=== PATIENT | male | born 1930 | race Hispanic/Latino ===

== ENCOUNTER 2017-07-21 06:54 | Day surgery (SDC) | payer MEDICARE, BC ==
[2017-07-10 12:40] VITALS: BMI 27.1
[2017-07-21 07:40] LABS: BLOOD UREA NITROGEN 18 mg/dL (7-21); CALCIUM 9.8 mg/dL (8.4-10.5); GFR AFRICAN-AMERICAN > 60; GFR NON-AFRICAN AMERICAN > 60
[2017-07-21 07:42] LABS: INR 1.14 (0.93-1.08); PARTIAL THROMBOPLASTIN TIME 26.8 Seconds (25.1-36.5); PROTHROMBIN TIME 13.2 SECONDS (9.4-12.5)
[2017-07-21 08:13] LABS: BASO # 0.04 K/mm3 (0.0-2.0); BASO % 0.6 % (0.0-3.0); EOS # 0.1 (0.0-0.7); GRAN # 4.28 (1.4-6.5); GRAN % 64.8 % (50.0-68.0); HEMOGLOBIN 10.4 g/dL (14.0-18.0); LYMPH # 1.4 (1.2-3.4); LYMPH % 21.4 % (22.0-35.0); MEAN CELL VOLUME 99.1 fl (80.0-105.0); MEAN CORPUSCULAR HEMOGLOBIN 32.6 pg (25.0-35.0); MEAN CORPUSCULAR HGB CONC 32.9 g/dl (31.0-37.0); MEAN PLATELET VOLUME 10.3 fl (7.0-11.0); MONO # 0.7 (0.1-0.6); MONO % 11.2 % (1.0-6.0); RBC 3.19 10^6/uL (3.5-6.1); WHITE BLOOD COUNT 6.6 10^3/ul (4.5-11.0)
[2017-07-21] MEDS ORDERED: Midazolam 2 MG/2 ML VIAL ONE (09:20)
[2017-07-21] MEDS ORDERED: Lidocaine 1% Inj (20ml) ONE (09:21)
[2017-07-21] MEDS ORDERED: Oxycodone/Acetaminophen 5/325 mg Tab PO PRN (09:55)
[2017-07-21] MEDS ORDERED: Sodium Chloride 0.45% 1,000 ML IV SCH (10:00)
[2017-07-21 10:33] VITALS: RESP 18
--- NOTE | 2017-07-21 11:35 | RAD ---
HISTORY: lt lung bx COMPARISON: 06/19/2015 FINDINGS: LUNGS: No active pulmonary disease. PLEURA: No significant pleural effusion identified, no pneumothorax apparent. CARDIOVASCULAR: Normal. OSSEOUS STRUCTURES: No significant abnormalities. VISUALIZED UPPER ABDOMEN: Normal. OTHER FINDINGS: None. IMPRESSION: No active disease. No evidence of pneumothorax
[2017-07-21 11:36] VITALS: TEMP 98.7
[2017-07-21 13:16] VITALS: BP 147/51; PULSE 61; O2SAT 95
--- NOTE | 2017-07-21 17:25 | CT ---
PROCEDURE: CT guided left upper lobe lung biopsy. HISTORY: CLL. 3 cm stellate opacity in the left upper lobe. Evaluate for malignancy. PHYSICIAN(S): Rojas Meza MD. TECHNIQUE: The relative risks and indications of the procedure were explained to the patient and his family and consent obtained. The patient was placed supine on the CT scanner and preliminary images through the lung apices obtained. Conscious sedation and monitoring were provided throughout the procedure by a nurse. There is a 3 cm stellate opacity at the left apex anteriorly. A left anterior approach was selected and the area prepped and draped in the usual sterile fashion. 1% Xylocaine was used to anesthetize the skin and soft tissues. A 19 gauge guiding needle was advanced into the 3 cm left apical opacity. Its position was confirmed with CT. Using coaxial technique, multiple core biopsies were obtained. The postprocedure images show no evidence of large pneumothorax or significant hemorrhage.. IMPRESSION: 1. CT-guided left apical lung biopsy as described above.
== END 2017-07-21 13:00 | disposition home or self-care (01) ==
LOC: SDS 06:54
PROVIDERS: ATTEND Radiology Vascular & Interventional Radiology
DX: C34.12 Malignant neoplasm of upper lobe, left bronchus or lung (principal); C91.10 Chronic lymphocytic leukemia of B-cell type not having achieved remission; E11.9 Type 2 diabetes mellitus without complications; Z87.891 Personal history of nicotine dependence
CPT/HCPCS: 32405; 36415; 71045; 77012; 80048; 85025; 85610; 85730; 88305; J2250; J2405; J3010; J7030

== ENCOUNTER 2017-08-26 12:50 | Inpatient (IN) | payer MEDICARE, BC ==
[2017-08-26 13:08] VITALS: BMI 27.0
--- NOTE | 2017-08-26 13:37 | RAD ---
HISTORY: 87yoM, chest pain COMPARISON: 07/21/2017 FINDINGS: LUNGS: No active pulmonary disease. PLEURA: No significant pleural effusion identified, no pneumothorax apparent. CARDIOVASCULAR: Normal. OSSEOUS STRUCTURES: No significant abnormalities. VISUALIZED UPPER ABDOMEN: Normal. OTHER FINDINGS: None. IMPRESSION: No active disease.
--- NOTE | 2017-08-26 13:40 | ED PDOC ---
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 Ahumada [place] [facility] [place] past [place] and has been having intermittent hx of yellowing of skin which occurred at this time and now with chest pain, midsternal which has improved with full dose of aspirin /x2 sprays of nitroglycerin per EMS and otherwise without any dark stool/ bleeding/nausea/vomiting/headache/dizziness/difficulty breathing/abdomen pain/ numbness/tingling/loss of limb function/pain with urination. Time/Duration: 24 hours Symptom Onset: Gradual Symptom Course: Improving Quality: Aching Severity Level: 2 Activities at Onset: Rest Context: Sitting Past Medical History - Provider Review Nursing Documentation Reviewed: Yes - Travel History Have you recently traveled outside [place] w/in the past 3 mons?: No - Infectious Disease Hx of Infectious Diseases: None - Cardiac Hx Cardiac Disorders: Yes Hx Atrial Fibrillation: Yes Hx Congestive Heart Failure: Yes Hx Pacemaker: No - Pulmonary Hx Lung Cancer: Yes - Neurological Hx Paralysis: No - HEENT Hx HEENT Disorder: No - Endocrine/Metabolic Hx Diabetes Mellitus Type 2: Yes - Hematological/Oncological Hx Blood Transfusions: Yes Hx Blood Transfusion Reaction: Yes (reaction to cold blood transfusion) Hx Leukemia: Yes - Musculoskeletal/Rheumatological Hx Musculoskeletal Disorders: No - Gastrointestinal Hx Gastrointestinal Disorders: No Hx Bowel Surgery: No Hx Colitis: No Hx Constipation: No Hx Crohn's Disease: No Hx Diarrhea: No Hx Diverticulitis: No Hx Esophageal Varices: No Hx Fatty Liver Disease: No Hx Gall Bladder Disease: Yes (GB REMOVAL 1 YR AGO) Hx Gastritis: No Hx Gastroesophageal Reflux: No Hx Gastrointestinal Ulcer: No Hx Hemorrhoids: No Hx Ileostomy: No Hx Irritable Bowel: No Hx Liver Failure: No Hx Nausea: No Hx Pancreatitis: No Hx Vomiting: No - Genitourinary/Gynecological Other/Comment: chemo therapy, AIHA - Psychiatric Hx Emotional Abuse: No Hx Physical Abuse: No Hx Substance Use: No - Surgical History Hx Appendectomy: No Hx Cholecystectomy: No Hx Gastric Bypass Surgery: No Hx Liver Transplant: No Hx Splenectomy: No - Anesthesia Hx Anesthesia Reactions: No Hx Malignant Hyperthermia: No - Suicidal Assessment Feels Threatened In Home Enviroment: No Family/Social History - Physician Review Nursing Documentation Reviewed: Yes Family/Social History: No Known Family HX Smoking Status: Never Smoked Hx Alcohol Use: No Hx Substance Use: No Allergies/Home Meds Allergies/Adverse Reactions: Allergies No Known Allergies Allergy (Verified 08/15/11 11:03) Home Medications: Home Meds Medication Instructions Recorded Confirmed Glipizide [Glucotrol] 5 mg PO BID 06/27/15 08/26/17 Carvedilol [Coreg] 3.125 mg PO BID 07/10/17 08/26/17 Furosemide [Lasix] 40 mg PO BID 07/10/17 08/26/17 Losartan [Cozaar] 25 mg PO DAILY 07/10/17 08/26/17 Potassium Chloride [Klor-Con M20] 20 meq PO DAILY 07/10/17 08/26/17 Folic Acid 1 mg PO DAILY 08/26/17 08/26/17 metOLazone [Zaroxolyn] 5 mg PO DAILY 08/26/17 08/26/17 Review of Systems - Review of Systems Constitutional: Fatigue Eyes: Other (yellow) ENT: Normal Respiratory: Normal Cardiovascular: Chest Pain Gastrointestinal: Normal Genitourinary Male: Normal Musculoskeletal: Normal Skin: Normal Neurological: Normal Endocrine: Normal Hemo/Lymphatic: Normal Psychiatric: Normal Physical Exam Vital Signs Reviewed: Yes Vital Signs Temp Pulse Resp BP Pulse Ox 08/26/17 13:08 98.2 F 64 18 117/44 L 96 Temperature: Afebrile Blood Pressure: Hypertensive Pulse: Regular Respiratory Rate: Normal Appearance: Positive for: Ill-Appearing Pain Distress: None Mental Status: Positive for: Alert and Oriented X 3 - Systems Exam Head: Present: Atraumatic, Normocephalic Pupils: Present: PERRL Extroacular Muscles: Present: EOMI Conjunctiva: Present: Icteric Ears: Present: Normal Mouth: Present: Moist Mucous Membranes Pharnyx: Present: Normal Nose (External): Present: Atraumatic Nose (Internal): Present: Normal Inspection Neck: Present: Normal Range of Motion Respiratory/Chest: Present: Clear to Auscultation, Good Air Exchange Cardiovascular: Present: Regular Rate and Rhythm Abdomen: No: Tenderness, Distention, Normal Bowel Sounds, Peritoneal Signs, Rebound, Guarding, McBurney's Point Tender, Rovsing's Sign Present, Hernias, Feeding Tubes, Ostomy Tubes, Mass/Organomegaly, Scars, Other Back: Present: Normal Inspection Upper Extremity: Present: Normal Inspection Lower Extremity: Present: Normal Inspection Neurological: Present: GCS=15, CN II-XII Intact, Speech Normal, Motor Func Grossly Intact Skin: Present: Other (yellow) Psychiatric: Present: Alert, Oriented x 3, Normal Insight, Normal Concentration Medical Decision Making ED Course and Treatment: Report Date : 08/26/2017 13:35:44 Procedure: Chest xray Dictator : Derrick Dangelo MD IMPRESSION: No active disease. 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 Ahumada of [facility] [place] past week and has been having intermittent hx of yellowing of skin which occurred at this time and now with chest pain, midsternal which has improved with full dose of aspirin /x2 sprays of nitroglycerin per EMS and otherwise without any dark stool/ bleeding/nausea/vomiting/headache/dizziness/difficulty breathing/abdomen pain/ numbness/tingling/loss of limb function/pain with urination. You were otherwise breathing easily, pink moist lips, smiling and talking with your /daughter, good strength/sensation, alert/oriented, walking easily, clear lungs, no abdomen tenderness, yellow eyes/skin, no fever temp 98.2, stable heart rate 64, stable breathing rate 18, excellent oxygen level 96% room air, elevated blood pressure 117/44_ which we recommend repeat in 2-3 days primary care office to determine further treatment, you have blood tests no infection count 8, slow blood level hemoglobin 4.2/ stable platelets 346, chest xray radiology no active disease, ECG atrial fibrilliation, saline, zofran, morphine, observation done in the ED with stability. lactic acid 3.9 - with sign of dehydration, pending ua and d/w with Dr. Ireland who agreed dose of zosyn, no sepsis code at this time, continue ivf hydration. will admit for acute anemia, chest pain, jaundice, transfusion. trop less than -0.01 bnp 1530 Tbili 7.7 08/26/17 13:51 08/26/17 14:57 08/26/17 15:04 08/26/17 15:06 Reassessment Condition: Re-examined, Unchanged - Lab Interpretations Lab Results: 08/26/17 13:53 08/26/17 13:53 Lab Results 08/26/17 14:00: Blood Type Pending, Antibody Screen Pending, Crossmatch See Detail, BBK History Checked Patient has bt 08/26/17 13:53: Ammonia < 9 L 08/26/17 13:53: pO2 102 H, VBG pH 7.44 H, VBG pCO2 45.0, VBG HCO3 30.6 H, VBG Total CO2 32.0 H, VBG O2 Sat (Calc) 101.0 H, VBG Base Excess 5.6 H, VBG Potassium 5.4 H, Sodium 132.0, Chloride 99.0, Glucose 412 H*, Lactate 3.9 H, FiO2 21.0, Venous Blood Potassium 5.4 H 08/26/17 13:53: Sodium 137, Chloride 97 L, Potassium 4.6, Carbon Dioxide 28, Anion Gap 16, BUN 51 H, Creatinine 0.8, Est GFR ( Amer) > 60, Est GFR ( Non-Af Amer) > 60, Random Glucose 359 H* D, Calcium 9.2, Magnesium 2.0, Total Bilirubin 7.7 H, AST 27, ALT 40, Alkaline Phosphatase 71, Lactate Dehydrogenase 1047 H, Total Creatine Kinase < 20 L, Troponin I < 0.01 D, NT-Pro-B Natriuret Pep 1530 H, Total Protein 5.7 L, Albumin 3.8, Globulin 1.9, Albumin/Globulin Ratio 2.0 H 08/26/17 13:53: PT 19.1 H, INR 1.66 H, APTT 27.3 08/26/17 13:53: WBC 8.0 D, RBC 1.03 L, Hgb 4.2 L* D, Hct 11.0 L*, MCV 106.8 H D , MCH 40.8 H, MCHC 38.2 H, Plt Count 346, MPV 10.2, Gran % 87.5 H, Lymph % (Auto ) 10.3 L, [place] % (Auto) 1.5, Eos % (Auto) 0.4 L, Baso % (Auto) 0.3, Gran # 6.96 H, Lymph # (Auto) 0.8 L, [place] # (Auto) 0.1, Eos # (Auto) 0.0, Baso # (Auto) 0.02 I have reviewed the lab results: Yes - RAD Interpretation Radiology Orders: 08/26/17 13:15 CHEST PORTABLE [RAD] Stat Slack Cooper: Radiologist - EKG Interpretation Interpreted by ED Physician: Yes (afib) Type: 12 lead EKG - Medication Orders Current Medication Orders: Sodium Chloride (Sodium Chloride 0.9%) 1,000 mls @ 100 mls/hr IV .Q10H ANDREW Last Admin: 08/26/17 13:50 Dose: 100 mls/hr eMAR Start Stop Document 08/26/17 13:50 RITA (Rec: 08/26/17 13:50 RITA OVERTON-PC) Intravenous Solution Start Date 08/26/17 Start Time 13:50 Discontinued Medications Morphine Sulfate (Morphine) 2 mg IVP STAT STA Stop: 08/26/17 13:44 Last Admin: 08/26/17 13:49 Dose: 2 mg MAR Pain Assessment Document 08/26/17 13:49 SZA (Rec: 08/26/17 13:49 RITA OVERTON-PC) Pain Reassessment Is this a pain reassessment? No Sleep Is patient sleeping during reassessment? No Presence of Pain Presence of Pain Yes IVP Administration Document 08/26/17 13:49 SZA (Rec: 08/26/17 13:49 IRTA OVERTON-PC) Charges for Administration # of IVP Administrations 1 Ondansetron HCl (Zofran Inj) 4 mg IVP STAT STA Stop: 08/26/17 13:44 Last Admin: 08/26/17 13:48 Dose: 4 mg IVP Administration Document 08/26/17 13:48 SZA (Rec: 08/26/17 13:48 BILL [id number]) Charges for Administration # of IVP Administrations 1 Disposition/Present on Arrival - Present on Arrival Any Indicators Present on Arrival: No History of DVT/PE: No History of Uncontrolled Diabetes: Yes Urinary Catheter: Yes (2WF FROM S/P APPENDECTOMY) History of Decub. Ulcer: No History Surgical Site Infection Following: None - Disposition Have Diagnosis and Disposition been Completed?: Yes Diagnosis: Jaundice, Acute anemia Disposition: HOSPITALIZED Disposition Time: 15:06 Patient Plan: Admission, Telemetry Condition: STABLE Referrals: [facility], [Non-Staff] - Follow up with primary Forms: [employer] (Frisian)
[2017-08-26] MEDS ORDERED: Morphine 2 mg/ml ISec IVP STA (13:43)
[2017-08-26] MEDS: Sodium Chloride 0.9% 1,000 ML IV SCH (13:50)
[2017-08-26 13:58] LABS: VENOUS BLOOD GAS BASE EXCESS 5.6 mmol/L (0.0-2.0); VENOUS BLOOD GAS PO2 102 mm/Hg (30-55); VENOUS BLOOD PH 7.44 (7.32-7.43)
[2017-08-26 13:59] LABS: BASO # 0.02 K/mm3 (0.0-2.0); BASO % 0.3 % (0.0-3.0); EOS % 0.4 % (1.5-5.0); GRAN # 6.96 (1.4-6.5); GRAN % 87.5 % (50.0-68.0); LYMPH # 0.8 (1.2-3.4); LYMPH % 10.3 % (22.0-35.0); MEAN CELL VOLUME 106.8 fl (80.0-105.0); MEAN CORPUSCULAR HEMOGLOBIN 40.8 pg (25.0-35.0); MEAN CORPUSCULAR HGB CONC 38.2 g/dl (31.0-37.0); MEAN PLATELET VOLUME 10.2 fl (7.0-11.0); MONO # 0.1 (0.1-0.6); MONO % 1.5 % (1.0-6.0); PLATELET COUNT 346 10^3/uL (120.0-450.0); RBC 1.03 10^6/uL (3.5-6.1)
[2017-08-26 14:02] LABS: HEMOGLOBIN 4.2 g/dL (14.0-18.0)
[2017-08-26 14:20] LABS: INR 1.66 (0.93-1.08); PARTIAL THROMBOPLASTIN TIME 27.3 Seconds (25.1-36.5); PROTHROMBIN TIME 19.1 SECONDS (9.4-12.5)
[2017-08-26 14:22] LABS: ALBUMIN 3.8 g/dL (3.0-4.8); ALT/SGPT 40 U/L (7-56); AST/SGOT 27 U/L (17-59); BLOOD UREA NITROGEN 51 mg/dL (7-21); CALCIUM 9.2 mg/dL (8.4-10.5); GFR AFRICAN-AMERICAN > 60; GFR NON-AFRICAN AMERICAN > 60
[2017-08-26 14:24] LABS: B-TYPE NATRIURETIC PEPTIDE 1530 pg/mL (0-450); TROPONIN I < 0.01 ng/mL
[2017-08-26] MEDS ORDERED: Morphine 4 mg/ml ISec IVP STA (15:00)
[2017-08-26] MEDS ORDERED: Piperacill/Tazo 4.5gm in NS 4.5 GM/100 ML BAG IVPB STA (15:01)
[2017-08-26 15:19] LABS: URINE BILIRUBIN NEGATIVE (NEGATIVE); URINE BLOOD NEGATIVE (NEGATIVE); URINE GLUCOSE (UA) 500 mg/dL (NEGATIVE); URINE LEUKOCYTE ESTERASE NEGATIVE Leu/uL (NEGATIVE); URINE PROTEIN NEGATIVE mg/dL (<30 mg/dL); URINE UROBILINOGEN 0.2 E.U./dL (<1 E.U./dL)
[2017-08-26 15:20] LABS: URINE APPEARANCE CLEAR (CLEAR); URINE COLOR YELLOW (YELLOW)
[2017-08-26] MEDS ORDERED: Oxycodone/Acetaminophen 5/325 mg Tab PO PRN (20:17)
[2017-08-26] MEDS ORDERED: Morphine 2 mg/ml ISec IVP PRN (20:17)
--- NOTE | 2017-08-26 20:40 | CARD ---
APPROVED REPORT EKG Measurement Heart [id number] <Conclusion> Consider Atrial flutter with 3:[address] & T wave abnormality, consider anterior ischemia or digitalis effect Abnormal ECG
[2017-08-26] MEDS ORDERED: Insulin Reg-MEDIUM-Coverage SC SCH (22:00)
[2017-08-26 22:32] LABS: BILIRUBIN,DIRECT 1.5 mg/dL (0.0-0.4)
[2017-08-26 23:14] LABS: IRON 230 ug/dL (45-180)
[2017-08-26 23:23] LABS: % IRON SATURATION 81 % (20-55); TOTAL IRON BINDING CAPACITY 283 ug/dL (261-462)
--- NOTE | 2017-08-27 07:16 | CP.PCM.HP ---
Addendum entered and electronically signed by Heather Miller DO 08/27/17 09: 17: Spoke with patient and again. Had long discussion about code status. As per both patient and . Patient will be full code. 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 Patient was started on Ellimpta and Carbiplatin for his recently diagnosed lung ca (s/p biopsy + for PDL-1) last week. He then started to notice his skin getting yellow. Over the past 2 days he began to feel weak and short of breath with ambulation. He was having chest pain that was midsternal and did not radiate. In the ED, patient was found to have anemia with Hgb 4.2 and hyperbilirubinemia. Patient was transfused 3U PRBC overnight. Patient denies having nausea/vomiting/diarrhea, dark or bloody stools, numbness/ tingling, fever/chills, dysuria/hematuria. Patient states after the transfusion , his chest pain and shortness of breath have improved. Past medical history: CLL, Lung cancer, Autoimmune hemolytic anemia, NIDDM, a.fib (on Eliquis), CHF (EF~56%, RSVP 46) Past surgical history: appendectomy, cholecystectomy Home meds: As per MAR Allergies: NKDA Social history: Denies tobacco, EtOH or drug use. Lives with . Is independent in ADLs PMD: Dr. Sales Heme/Onc: Dr. Stoddard Present on Admission - Present on Admission Any Indicators Present on Admission: No Review of Systems - Review of Systems All systems: reviewed and no additional remarkable complaints except Review of Systems: 12 point ROS reviewed as per HPI and are otherwise negative. Past Patient History - Infectious Disease Hx of Infectious Diseases: None - Past Social History Smoking Status: Former Smoker - CARDIAC Hx Cardiac Disorders: Yes Hx Cardia Arrhythmia: Yes (afib) Hx Congestive Heart Failure: Yes Hx Pacemaker: No Hx Peripheral Edema: Yes (ble +1 pitting edema) Other/Comment: [id number] and 2016 - PULMONARY Other/Comment: stage 4 left lung ca started 1st treatment 6 days ago - NEUROLOGICAL Hx Paralysis: No - HEENT Hx HEENT Problems: No - ENDOCRINE/METABOLIC Hx Diabetes Mellitus Type 2: Yes - HEMATOLOGICAL/ONCOLOGICAL Hx Blood Disorders: Yes (CLL) Hx Anemia: Yes (blood transfusion need to warm blood) Hx Cancer: Yes (cll leukemia, skin ca, left lung ca) Hx Chemotherapy: Yes (cll leukemia skin ca lung ca) Hx Cirrhosis: Yes Other/Comment: 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 pt dx with cll 12 yrs ago having chemo every 6-8 months ever since finished 2014, then pt was dx with stage 4 left lung ca started 1st chemo tx 6 days ago tx by dr stoddard - INTEGUMENTARY Hx Dermatological Problems: Yes Hx Basil Cell: Yes (neck/face/forehead) Hx Melanoma: Yes (r shoulder) Other/Comment: b/l arms eccymotic - MUSCULOSKELETAL/RHEUMATOLOGICAL Hx Musculoskeletal Disorders: No Hx Falls: No - GASTROINTESTINAL Hx Gastrointestinal Disorders: No Hx Crohn's Disease: No Hx Diverticulitis: No Hx Gall Bladder Disease: Yes (GB REMOVAL 1 YR AGO) Hx Gastroesophageal Reflux: No Hx Ileostomy: No Hx Liver Failure: No Hx Pancreatitis: No - GENITOURINARY/GYNECOLOGICAL 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) Other/Comment: chemo therapy, AIHA - PSYCHIATRIC Hx Emotional Abuse: No Hx Physical Abuse: No Hx Substance Use: No - SURGICAL HISTORY Hx Appendectomy: Yes Hx Cholecystectomy: Yes Hx Gastric Bypass Surgery: No Hx Liver Transplant: No Hx Splenectomy: No - ANESTHESIA Hx Anesthesia Reactions: No Hx Malignant Hyperthermia: No Meds Allergies/Adverse Reactions: Allergies Allergy/AdvReac Type Severity Reaction Status Date / Time No Known Allergies Allergy Verified 08/15/11 11:03 Physical Exam - Constitutional Appears: No Acute Distress - Head Exam Head Exam: ATRAUMATIC, NORMAL INSPECTION, NORMOCEPHALIC - Eye Exam Eye Exam: Normal appearance, PERRL, Scleral icterus Pupil Exam: NORMAL ACCOMODATION, PERRL - ENT Exam ENT Exam: Mucous Membranes Moist - Respiratory Exam Respiratory Exam: Clear to Auscultation Bilateral, NORMAL BREATHING PATTERN. absent: Rales, Rhonchi, Wheezes - Cardiovascular Exam Cardiovascular Exam: Tachycardia, Irregular Rhythm, +S1, +S2. absent: Gallop, Rubs, Systolic Murmur - GI/Abdominal Exam GI & Abdominal Exam: Normal Bowel Sounds, Soft. absent: Mass, Rebound, Rigid, Tenderness - Extremities Exam Extremities exam: Positive for: pedal edema (+ 2 bilaterally ) - Neurological Exam Neurological exam: Alert, CN II-XII Intact, Oriented x3 - Psychiatric Exam Psychiatric exam: Normal Affect, Normal Mood - Skin Skin Exam: Dry, Warm Results - Vital Signs Recent Vital Signs: Last Vital Signs Temp 98.4 F 08/27/17 06:00 Pulse 72 08/27/17 06:00 Resp 20 08/27/17 06:00 BP 102/66 08/27/17 06:00 Pulse Ox 95 08/27/17 06:00 - Labs Result Diagrams: 08/27/17 06:00 08/27/17 06:00 Labs: Laboratory Results - last 24 hr 08/26/17 08/26/17 08/26/17 15:15 21:24 23:06 POC Glucose (mg/dL) 339 H Iron 230 H TIBC 283 % Saturation 81 H Urine Color Yellow Urine Appearance Clear Urine pH 6.0 Ur Specific [place] 1.020 Urine Protein Negative Urine Glucose (UA) 500 H Urine Ketones Negative Urine Blood Negative Urine Nitrate Negative Urine Bilirubin Negative Urine Urobilinogen 0.2 Ur Leukocyte Esterase Negative 08/27/17 03:48 POC Glucose (mg/dL) 190 H Iron TIBC % Saturation Urine Color Urine Appearance Urine pH Ur Specific [place] Urine Protein Urine Glucose (UA) Urine Ketones Urine Blood Urine Nitrate Urine Bilirubin Urine Urobilinogen Ur Leukocyte Esterase Assessment & Plan - Assessment and Plan (Free Text) Assessment: This is an 87yo male with 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 Plan: 1. Anemia - with hyperbilirubinemia - Hx of CLL and AIHA - s/p 3U PRBC - Hgb increased from 4.2 to 6.9 - Heme consulted- spoke with Dr. Stoddard who states this is most likely an 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 - Dr. Stoddard recommended to transfer 2 more U of PRBC and give him Prednisone 40mg PO. He reports he will give patient Rituxin as outpatient and should be able to be discharged tomorrow if no other complications occur - Continue folic acid - B12 and folate levels pending - GI consulted 2. Chest pain (improved) - most likely secondary to anemia - EKG did not show evidence of acute DC - Troponin <0.01 x 1- will trend - Cardiology consulted 3. A.fib - Will restart Eliquis tomorrow 4. CHF - Last echo showed EF 56% with RSVP of 46 - Continue home meds: Coreg, Metalozone, Lasix and K-dur 5. NIDDM - Will obtain HgbA1c - Restart Home med: Glipizide - Insulin sliding scale 6. CLL w/ lung mets - + for PDL-1 - s/p Ellimpta and Carbiplatin therapy - Heme consulted- recs appreciated GI ppx: Pepcid DVT ppx: SCDs. Will restart Eliquis in AM. Dispo: Patient will be evaluated by physical therapy. Plan for discharge tomorrow if Hgb stable. He will follow up with Dr. Stoddard for outpatient Rituxin treatment. Spoke with both patient and who is power of pick remover report that patient is DNR/DNI and will bring in the paperwork today. Case seen, discussed and reviewed with Dr. Ireland. Galo Miller PGY2 - Date & Time Date: 08/27/17 Time: 08:00 <Abner Ireland S - Last Filed: 08/27/17 16:56> Results - Vital Signs Recent Vital Signs: Last Vital Signs Temp 98.4 F 08/27/17 16:13 Pulse 60 08/27/17 16:13 Resp 16 08/27/17 16:13 BP 137/49 L 08/27/17 16:13 Pulse Ox 98 08/27/17 14:00 - Labs Result Diagrams: 08/27/17 06:00 08/27/17 06:00 Labs: Laboratory Results - last 24 hr 08/26/17 08/26/17 08/26/17 21:24 23:04 23:06 WBC RBC Hgb Hct MCV MCH MCHC RDW Plt Count MPV pO2 VBG pH VBG pCO2 VBG HCO3 VBG Total CO2 VBG O2 Sat (Calc) VBG Base Excess VBG Potassium Glucose Lactate FiO2 Sodium Potassium Chloride Carbon Dioxide Anion Gap BUN Creatinine Est GFR ( Amer) Est GFR (Non-Af Amer) POC Glucose (mg/dL) 339 H Random Glucose Hemoglobin A1c Calcium Iron 230 H TIBC 283 % Saturation 81 H Ferritin 1080.0 Total Bilirubin AST ALT Alkaline Phosphatase Troponin I Total Protein Albumin Globulin Albumin/Globulin Ratio Vitamin B12 895 Folate > 20.0 Venous Blood Potassium 08/27/17 08/27/17 08/27/17 03:48 06:00 06:00 WBC 4.3 L D RBC 2.18 L Hgb 6.9 L* D Hct 19.5 L* MCV 89.4 D MCH 31.7 MCHC 35.4 RDW 15.0 H Plt Count 192 MPV 10.1 pO2 VBG pH VBG pCO2 VBG HCO3 VBG Total CO2 VBG O2 Sat (Calc) VBG Base Excess VBG Potassium Glucose Lactate FiO2 Sodium Potassium Chloride Carbon Dioxide Anion Gap BUN Creatinine Est GFR ( Amer) Est GFR (Non-Af Amer) POC Glucose (mg/dL) 190 H Random Glucose Hemoglobin A1c 5.9 Calcium Iron TIBC % Saturation Ferritin Total Bilirubin AST ALT Alkaline Phosphatase Troponin I Total Protein Albumin Globulin Albumin/Globulin Ratio Vitamin B12 Folate Venous Blood Potassium 08/27/17 08/27/17 08/27/17 06:00 07:21 08:00 WBC RBC Hgb Hct MCV MCH MCHC RDW Plt Count MPV pO2 135 H VBG pH 7.50 H VBG pCO2 40.0 VBG HCO3 31.2 H VBG Total CO2 32.4 H VBG O2 Sat (Calc) 100.1 H VBG Base Excess 7.4 H VBG Potassium 3.9 Glucose 187 H Lactate 1.0 FiO2 21.0 Sodium 143 137.0 Potassium 4.0 Chloride 102 106.0 Carbon Dioxide 30 Anion Gap 15 BUN 46 H Creatinine 0.7 L Est GFR ( Amer) > 60 Est GFR (Non-Af Amer) > 60 POC Glucose (mg/dL) 189 H Random Glucose 155 H Hemoglobin A1c Calcium 9.4 Iron TIBC % Saturation Ferritin Total Bilirubin 6.3 H AST 27 ALT 34 Alkaline Phosphatase 62 Troponin I 0.08 D Total Protein 5.6 L Albumin 3.5 Globulin 2.1 Albumin/Globulin Ratio 1.7 Vitamin B12 Folate Venous Blood Potassium 3.9 08/27/17 08/27/17 11:13 11:30 WBC RBC Hgb Hct MCV MCH MCHC RDW Plt Count MPV pO2 VBG pH VBG pCO2 VBG HCO3 VBG Total CO2 VBG O2 Sat (Calc) VBG Base Excess VBG Potassium Glucose Lactate FiO2 Sodium Potassium Chloride Carbon Dioxide Anion Gap BUN Creatinine Est GFR ( Amer) Est GFR (Non-Af Amer) POC Glucose (mg/dL) 267 H Random Glucose Hemoglobin A1c Calcium Iron TIBC % Saturation Ferritin Total Bilirubin AST ALT Alkaline Phosphatase Troponin I 0.05 D Total Protein Albumin Globulin Albumin/Globulin Ratio Vitamin B12 Folate Venous Blood Potassium Assessment & Plan - Assessment and Plan (Free Text) Plan: Pt seen and examined. Agree with the note of the diploma medical assistant. Labs and medications have been reviewed. Hb is improving. He has probable hemolytic anemia. Will transfuse [address] Stoddard aware of pt and consulted (Heme). Trop is negative. ISS. Plan for D/C in am.
[2017-08-27 08:06] LABS: MEAN CORPUSCULAR HEMOGLOBIN 31.7 pg (25.0-35.0); MEAN CORPUSCULAR HGB CONC 35.4 g/dl (31.0-37.0); MEAN PLATELET VOLUME 10.1 fl (7.0-11.0); RBC 2.18 10^6/uL (3.5-6.1); WHITE BLOOD COUNT 4.3 10^3/ul (4.5-11.0)
[2017-08-27 08:08] LABS: HEMOGLOBIN 6.9 g/dL (14.0-18.0); MEAN CELL VOLUME 89.4 fl (80.0-105.0)
[2017-08-27 08:11] LABS: VENOUS BLOOD GAS BASE EXCESS 7.4 mmol/L (0.0-2.0); VENOUS BLOOD GAS PO2 135 mm/Hg (30-55)
[2017-08-27 09:00] LABS: ALB/GLOB RATIO 1.7 (1.1-1.8); ALBUMIN 3.5 g/dL (3.0-4.8); ALT/SGPT 34 U/L (7-56); AST/SGOT 27 U/L (17-59); BLOOD UREA NITROGEN 46 mg/dL (7-21); CALCIUM 9.4 mg/dL (8.4-10.5); GFR AFRICAN-AMERICAN > 60; GFR NON-AFRICAN AMERICAN > 60
[2017-08-27] MEDS: Potassium Chloride 20 mEq ER Tab PO SCH (09:35)
[2017-08-27 09:42] LABS: TROPONIN I 0.08 ng/mL
[2017-08-27] MEDS ORDERED: metOLazone 5 MG TAB PO SCH (10:00)
--- NOTE | 2017-08-27 11:16 | CP.PCM.CON ---
<Eileen Seymour - Last Filed: 08/27/17 18:28> History of Present Illness - History of Present Illness History of Present Illness: PGY-2 GI consult note for Dr. 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 Patient was started on Ellimpta and Carbiplatin for his recently diagnosed lung ca (s/p biopsy + for PDL-1) last week. He states that he started to notice his skin getting yellow. Over the past 2 days he began to feel weak and short of breath with excretion. He also reported having chest pain. In the ED, patient was found to have anemia with Hgb 4.2 and hyperbilirubinemia. Patient was transfused 3 units pRBC overnight. Patient denies having nausea/vomiting, diarrhea, abd pain, dark or bloody stools, fever/chills, dysuria, hematuria. Patient states that this morning after the transfusion, his symptoms have improved and he feels better. Patient states that his last colonoscopy and EGD were about 10 years ago, and he was found to have diverticulosis. Patient states that he has had similar episodes in the past due to his CLL and Autoimmune hemolytic anemia. He states that he spoke with his oncologist and believes it was due to the chemotherapy. Past medical history: CLL, Lung cancer, Autoimmune hemolytic anemia, NIDDM, a.fib (on Eliquis), CHF (EF~56%, RSVP 46) Past surgical history: appendectomy, cholecystectomy family history: denies Allergies: NKDA Social history: Denies tobacco, alcohol or drug use. Lives with . Past Patient History - Infectious Disease Hx of Infectious Diseases: None - Past Social History Smoking Status: Former Smoker - CARDIAC Hx Cardiac Disorders: Yes Hx Cardia Arrhythmia: Yes (afib) Hx Congestive Heart Failure: Yes Hx Pacemaker: No Hx Peripheral Edema: Yes (ble +1 pitting edema) Other/Comment: [id number] and 2016 - PULMONARY Other/Comment: stage 4 left lung ca started 1st treatment 6 days ago - NEUROLOGICAL Hx Paralysis: No - HEENT Hx HEENT Problems: No - ENDOCRINE/METABOLIC Hx Diabetes Mellitus Type 2: Yes - HEMATOLOGICAL/ONCOLOGICAL Hx Blood Disorders: Yes (CLL) Hx Anemia: Yes (blood transfusion need to warm blood) Hx Cancer: Yes (cll leukemia, skin ca, left lung ca) Hx Chemotherapy: Yes (cll leukemia skin ca lung ca) Hx Cirrhosis: Yes Other/Comment: 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 pt dx with cll 12 yrs ago having chemo every 6-8 months ever since finished 2014, then pt was dx with stage 4 left lung ca started 1st chemo tx 6 days [address] tx [address] stoddard - INTEGUMENTARY Hx Dermatological Problems: Yes Hx Basil Cell: Yes (neck/face/forehead) Hx Melanoma: Yes (r shoulder) Other/Comment: b/l arms eccymotic - MUSCULOSKELETAL/RHEUMATOLOGICAL Hx Musculoskeletal Disorders: No Hx Falls: No - GASTROINTESTINAL Hx Gastrointestinal Disorders: No Hx Crohn's Disease: No Hx Diverticulitis: No Hx Gall Bladder Disease: Yes (GB REMOVAL 1 YR AGO) Hx Gastroesophageal Reflux: No Hx Ileostomy: No Hx Liver Failure: No Hx Pancreatitis: No - GENITOURINARY/GYNECOLOGICAL 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) Other/Comment: chemo therapy, AIHA - PSYCHIATRIC Hx Emotional Abuse: No Hx Physical Abuse: No Hx Substance Use: No - SURGICAL HISTORY Hx Appendectomy: Yes Hx Cholecystectomy: Yes Hx Gastric Bypass Surgery: No Hx Liver Transplant: No Hx Splenectomy: No - ANESTHESIA Hx Anesthesia Reactions: No Hx Malignant Hyperthermia: No Meds Allergies/Adverse Reactions: Allergies Allergy/AdvReac Type Severity Reaction Status Date / Time No Known Allergies Allergy Verified 08/15/11 11:03 - Medications Medications: Current Medications Acetaminophen (Tylenol 325mg Tab) 650 mg PO Q4H PRN PRN Reason: Pain, Mild (1-3) Apixaban (Eliquis) 5 mg PO BID [facility] PRN Reason: Protocol Carvedilol (Coreg) 3.125 mg PO BID [facility] Last Admin: 08/27/17 09:34 Dose: 3.125 mg Folic Acid (Folic Acid) 1 mg PO DAILY [facility] Last Admin: 08/27/17 09:34 Dose: 1 mg Furosemide (Lasix) 40 mg PO BID [facility] Last Admin: 08/27/17 09:35 Dose: 40 mg Glipizide (Glucotrol) 5 mg PO BID [facility] Last Admin: 08/27/17 09:33 Dose: 5 mg Sodium Chloride (Sodium Chloride 0.9%) 1,000 mls @ 100 mls/hr IV .Q10H [facility] Last Admin: 08/26/17 13:50 Dose: 100 mls/hr Insulin Human Regular (Humulin R High) 0 units SC ACHS [facility] PRN Reason: Protocol Losartan Potassium (Cozaar) 25 mg PO DAILY [facility] Last Admin: 08/27/17 09:34 Dose: 25 mg Metolazone (Zaroxolyn) 5 mg PO DAILY [facility] Last Admin: 08/27/17 09:35 Dose: Not Given Morphine Sulfate (Morphine) 2 mg IVP Q4H PRN PRN Reason: Pain, severe (8-10) Oxycodone/Acetaminophen (Percocet 5/325 Mg Tab) 1 tab PO Q4H PRN PRN Reason: Pain, moderate (4-7) Stop: 08/29/17 20:18 Potassium Chloride (K-Dur 20 Meq Er Tab) 20 meq PO DAILY [facility] Last Admin: 08/27/17 09:35 Dose: 20 meq Prednisone (Prednisone Tab) 40 mg PO DAILY [facility] Last Admin: 08/27/17 09:34 Dose: 40 mg Physical Exam - Constitutional Appears: No Acute Distress - Head Exam Head Exam: ATRAUMATIC, NORMOCEPHALIC - Eye Exam Eye Exam: EOMI, Normal appearance, Scleral icterus - ENT Exam ENT Exam: Mucous Membranes Moist - Respiratory Exam Respiratory Exam: Clear to Auscultation Bilateral, NORMAL BREATHING PATTERN. absent: Decreased Breath Sounds, Rales, Rhonchi, Wheezes, Respiratory Distress - Cardiovascular Exam Cardiovascular Exam: REGULAR RHYTHM, +S1, +S2. absent: Bradycardia, Tachycardia , Irregular Rhythm, Systolic Murmur - GI/Abdominal Exam GI & Abdominal Exam: Normal Bowel Sounds, Soft. absent: Distended, Firm, Guarding, Tenderness - Extremities Exam Extremities exam: Positive for: normal inspection. Negative for: pedal edema, tenderness - Neurological Exam Neurological exam: Alert, Oriented x3 - Skin Skin Exam: Dry, Intact, Pallor, Warm Results - Vital Signs Recent Vital Signs: Last Vital Signs Temp 98.4 F 08/27/17 06:00 Pulse 67 08/27/17 09:34 Resp 20 08/27/17 06:00 BP 128/47 L 08/27/17 09:35 Pulse Ox 95 08/27/17 06:00 - Labs Result Diagrams: 08/27/17 06:00 08/27/17 06:00 Labs: Laboratory Results - last 24 hr 08/26/17 08/26/17 08/26/17 15:15 21:24 23:06 WBC RBC Hgb Hct MCV MCH MCHC RDW Plt Count MPV pO2 VBG pH VBG pCO2 VBG HCO3 VBG Total CO2 VBG O2 Sat (Calc) VBG Base Excess VBG Potassium Glucose Lactate FiO2 Sodium Potassium Chloride Carbon Dioxide Anion Gap BUN Creatinine Est GFR ( Amer) Est GFR (Non-Af Amer) POC Glucose (mg/dL) 339 H Random Glucose Calcium Iron 230 H TIBC 283 % Saturation 81 H Total Bilirubin AST ALT Alkaline Phosphatase Troponin I Total Protein Albumin Globulin Albumin/Globulin Ratio Venous Blood Potassium Urine Color Yellow Urine Appearance Clear Urine pH 6.0 Ur Specific [place] 1.020 Urine Protein Negative Urine Glucose (UA) 500 H Urine Ketones Negative Urine Blood Negative Urine Nitrate Negative Urine Bilirubin Negative Urine Urobilinogen 0.2 Ur Leukocyte Esterase Negative 08/27/17 08/27/17 08/27/17 03:48 06:00 06:00 WBC 4.3 L D RBC 2.18 L Hgb 6.9 L* D Hct 19.5 L* MCV 89.4 D MCH 31.7 MCHC 35.4 RDW 15.0 H Plt Count 192 MPV 10.1 pO2 VBG pH VBG pCO2 VBG HCO3 VBG Total CO2 VBG O2 Sat (Calc) VBG Base Excess VBG Potassium Glucose Lactate FiO2 Sodium 143 Potassium 4.0 Chloride 102 Carbon Dioxide 30 Anion Gap 15 BUN 46 H Creatinine 0.7 L Est GFR ( Amer) > 60 Est GFR (Non-Af Amer) > 60 POC Glucose (mg/dL) 190 H Random Glucose 155 H Calcium 9.4 Iron TIBC % Saturation Total Bilirubin 6.3 H AST 27 ALT 34 Alkaline Phosphatase 62 Troponin I 0.08 D Total Protein 5.6 L Albumin 3.5 Globulin 2.1 Albumin/Globulin Ratio 1.7 Venous Blood Potassium Urine Color Urine Appearance Urine pH Ur Specific [place] Urine Protein Urine Glucose (UA) Urine Ketones Urine Blood Urine Nitrate Urine Bilirubin Urine Urobilinogen Ur Leukocyte Esterase 08/27/17 08/27/17 07:21 08:00 WBC RBC Hgb Hct MCV MCH MCHC RDW Plt Count MPV pO2 135 H VBG pH 7.50 H VBG pCO2 40.0 VBG HCO3 31.2 H VBG Total CO2 32.4 H VBG O2 Sat (Calc) 100.1 H VBG Base Excess 7.4 H VBG Potassium 3.9 Glucose 187 H Lactate 1.0 FiO2 21.0 Sodium 137.0 Potassium Chloride 106.0 Carbon Dioxide Anion Gap BUN Creatinine Est GFR ( Amer) Est GFR (Non-Af Amer) POC Glucose (mg/dL) 189 H Random Glucose Calcium Iron TIBC % Saturation Total Bilirubin AST ALT Alkaline Phosphatase Troponin I Total Protein Albumin Globulin Albumin/Globulin Ratio Venous Blood Potassium 3.9 Urine Color Urine Appearance Urine pH Ur Specific [place] Urine Protein Urine Glucose (UA) Urine Ketones Urine Blood Urine Nitrate Urine Bilirubin Urine Urobilinogen Ur Leukocyte Esterase Assessment & Plan - Assessment and Plan (Free Text) Assessment: 87yo male with past medical history of 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 Hgb was 4.9, s/p 3 unit pRCB. Repeat Hgb is 6.9 Plan: - continue to monitor trend of hyperbilirubinemia - s/p 3U PRBC, pending transfusion of 2 more units - Heme consulted- most likely an exacerbation of his autoimmune hemolytic anemia - continue monitoring H&H for overt bleeding - will discusse with heme/onc for further recommendations case reviewed and discussed with Dr. Hilario <Trung Hilario V - Last Filed: 08/27/17 23:58> Meds - Medications Medications: Current Medications Acetaminophen (Tylenol 325mg Tab) 650 mg PO Q4H PRN PRN Reason: Pain, Mild (1-3) Apixaban (Eliquis) 5 mg PO BID [facility] PRN Reason: Protocol Carvedilol (Coreg) 3.125 mg PO BID [facility] Last Admin: 08/27/17 19:36 Dose: 3.125 mg Folic Acid (Folic Acid) 1 mg PO DAILY [facility] Last Admin: 08/27/17 09:34 Dose: 1 mg Furosemide (Lasix) 40 mg PO DAILY [facility] Glipizide (Glucotrol) 5 mg PO BID [facility] Last Admin: 05/16/18 19:36 Dose: 5 mg Sodium Chloride (Sodium Chloride 0.9%) 1,000 mls @ 100 mls/hr IV .Q10H [facility] Last Admin: 08/26/17 13:50 Dose: 100 mls/hr Insulin Human Regular (Humulin R High) 0 units SC ACHS [facility] PRN Reason: Protocol Last Admin: 08/27/17 22:03 Dose: Not Given Losartan Potassium (Cozaar) 25 mg PO DAILY [facility] Last Admin: 08/27/17 09:34 Dose: 25 mg Morphine Sulfate (Morphine) 2 mg IVP Q4H PRN PRN Reason: Pain, severe (8-10) Oxycodone/Acetaminophen (Percocet 5/325 Mg Tab) 1 tab PO Q4H PRN PRN Reason: Pain, moderate (4-7) Stop: 08/29/17 20:18 Potassium Chloride (K-Dur 20 Meq Er Tab) 20 meq PO DAILY [facility] Last Admin: 08/27/17 09:35 Dose: 20 meq Prednisone (Prednisone Tab) 40 mg PO DAILY [facility] Last Admin: 08/27/17 09:34 Dose: 40 mg Results - Vital Signs Recent Vital Signs: Last Vital Signs Temp 98.5 F 08/27/17 22:44 Pulse 73 08/27/17 22:44 Resp 18 08/27/17 22:44 BP 137/59 L 08/27/17 22:44 Pulse Ox 98 08/27/17 14:00 - Labs Result Diagrams: 08/27/17 06:00 08/27/17 06:00 Labs: Laboratory Results - last 24 hr 08/26/17 08/27/17 08/27/17 23:04 03:48 06:00 WBC 4.3 L D RBC 2.18 L Hgb 6.9 L* D Hct 19.5 L* MCV 89.4 D MCH 31.7 MCHC 35.4 RDW 15.0 H Plt Count 192 MPV 10.1 pO2 VBG pH VBG pCO2 VBG HCO3 VBG Total CO2 VBG O2 Sat (Calc) VBG Base Excess VBG Potassium Glucose Lactate FiO2 Sodium Potassium Chloride Carbon Dioxide Anion Gap BUN Creatinine Est GFR ( Amer) Est GFR (Non-Af Amer) POC Glucose (mg/dL) 190 H Random Glucose Hemoglobin A1c Calcium Ferritin 1080.0 Total Bilirubin AST ALT Alkaline Phosphatase Troponin I Total Protein Albumin Globulin Albumin/Globulin Ratio Vitamin B12 895 Folate > 20.0 Venous Blood Potassium 08/27/17 08/27/17 08/27/17 06:00 06:00 07:21 WBC RBC Hgb Hct MCV MCH MCHC RDW Plt Count MPV pO2 VBG pH VBG pCO2 VBG HCO3 VBG Total CO2 VBG O2 Sat (Calc) VBG Base Excess VBG Potassium Glucose Lactate FiO2 Sodium 143 Potassium 4.0 Chloride 102 Carbon Dioxide 30 Anion Gap 15 BUN 46 H Creatinine 0.7 L Est GFR ( Amer) > 60 Est GFR (Non-Af Amer) > 60 POC Glucose (mg/dL) 189 H Random Glucose 155 H Hemoglobin A1c 5.9 Calcium 9.4 Ferritin Total Bilirubin 6.3 H AST 27 ALT 34 Alkaline Phosphatase 62 Troponin I 0.08 D Total Protein 5.6 L Albumin 3.5 Globulin 2.1 Albumin/Globulin Ratio 1.7 Vitamin B12 Folate Venous Blood Potassium 08/27/17 08/27/17 08/27/17 08:00 11:13 11:30 WBC RBC Hgb Hct MCV MCH MCHC RDW Plt Count MPV pO2 135 H VBG pH 7.50 H VBG pCO2 40.0 VBG HCO3 31.2 H VBG Total CO2 32.4 H VBG O2 Sat (Calc) 100.1 H VBG Base Excess 7.4 H VBG Potassium 3.9 Glucose 187 H Lactate 1.0 FiO2 21.0 Sodium 137.0 Potassium Chloride 106.0 Carbon Dioxide Anion Gap BUN Creatinine Est GFR ( Amer) Est GFR (Non-Af Amer) POC Glucose (mg/dL) 267 H Random Glucose Hemoglobin A1c Calcium Ferritin Total Bilirubin AST ALT Alkaline Phosphatase Troponin I 0.05 D Total Protein Albumin Globulin Albumin/Globulin Ratio Vitamin B12 Folate Venous Blood Potassium 3.9 08/27/17 08/27/17 16:28 21:39 WBC RBC Hgb Hct MCV MCH MCHC RDW Plt Count MPV pO2 VBG pH VBG pCO2 VBG HCO3 VBG Total CO2 VBG O2 Sat (Calc) VBG Base Excess VBG Potassium Glucose Lactate FiO2 Sodium Potassium Chloride Carbon Dioxide Anion Gap BUN Creatinine Est GFR ( Amer) Est GFR (Non-Af Amer) POC Glucose (mg/dL) 289 H 202 H Random Glucose Hemoglobin A1c Calcium Ferritin Total Bilirubin AST ALT Alkaline Phosphatase Troponin I Total Protein Albumin Globulin Albumin/Globulin Ratio Vitamin B12 Folate Venous Blood Potassium Attending/Attestation - Attestation I have personally seen and examined this patient.: Yes I have fully participated in the care of the patient.: Yes I have reviewed all pertinent clinical information: Yes Notes (Text): This is an addendum to GI consult report dictated by the Splicing Supervisor.The patient was seen and examined earlier. Medical records, lab studies, imagings were reviewed. Last 24 hours events reviewed. Agreed with the above treatment plan as outlined in Splicing Supervisor 's notes the with the addition of the following 08/27/17 23:57
[2017-08-27 12:41] LABS: FOLATE > 20.0 ng/mL
[2017-08-27] MEDS: Insulin Reg-HIGH-Coverage SC SCH ×3 (12:44→22:03)
--- NOTE | 2017-08-27 18:03 | CON ---
DATE: ONCOLOGY CONSULTATION This is an 87-year-old man who has two medical problems; 1. 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 He gets Rituxan about every couple of years. His last Rituxan was about a year ago and he now concerned for severe anemia secondary to hemolytic anemia. 2. 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 He just guarded his treatment with Alimta and carboplatin. There is no immunotherapy being given to him at this time. He started having more shortness of breath and came in with some hemolytic anemia. Laboratory finding showed the hemoglobin of 4.2, hematocrit of 11 with an MCV of 106, white count of 8, and platelet count of 346. The sugar was 359 initially. His total bilirubin was 7.6 with an LDH of 1047. At this point in time, his hemoglobin went up to 6.9 after 2 units of blood and I have asked the resident to give another 2 units and start him on prednisone 40 mg. In the meantime, I am going to start him on Rituxan next week for his hemolytic anemia. Truman Hutchins MD
--- NOTE | 2017-08-27 23:39 | CON ---
DATE: 08/27/2017 LOCATION: The patient in room 574, bed 1. REASON FOR CONSULTATION: Chest pain, shortness of breath, atrial fibrillation, swelling of legs. HISTORY OF PRESENT ILLNESS: Patient is an 87-year-old male, known case of chronic lymphocytic leukemia, autoimmune hemolytic anemia, recently diagnosed lung carcinoma, received chemotherapy for that, Alimta and Carboplatin and after getting chemotherapy, patient started getting weak and then he started getting shortness of breath and swelling of leg and his color became markedly pale. The patient was brought to hospital and he was found to have hemoglobin of 4.2. Bilirubin was 1.5, which was elevated. The patient is known diabetic and his sugar was 339. The patient received blood transfusion and already feels better. His shortness of breath and his chest pain is relieved. The patient is sitting in chair without any respiratory distress. PAST MEDICAL HISTORY: Patient is a known case of chronic lymphocytic leukemia, autoimmune hemolytic anemia, recently diagnosed lung CA, diabetes mellitus. He has atrial fibrillation. He had LEI cardioversion in 2010, then again he had LEI cardioversion on 06/29/2015, converted to sinus rhythm, but after that, patient went back into atrial fibrillation, so patient has been again in atrial fibrillation. Patient denies any palpitations. PERSONAL HISTORY: Denies smoking, denies drinking. ALLERGIES: PATIENT DENIES ANY ALLERGIES. LIST OF MEDICATIONS AT HOME: Patient received Zaroxolyn 5 mg daily for 5 days to help edema of the legs, folic acid 1 mg daily, losartan 25 mg daily, glipizide 5 mg b.i.d., Lasix used to be 40 mg, but then it was increased to 40 mg b.i.d. because of swelling of legs, Coreg 3.125 mg b.i.d., Eliquis 5 mg b.i.d. REVIEW OF SYSTEMS: All the systems reviewed, positive mentioned in the history, others were negative. PHYSICAL EXAMINATION: VITAL SIGNS: Blood pressure 128/47, respiration 20, pulse 67, temperature 98.4. HEENT: Head is normocephalic. Eyes: Pupils normal. Conjunctivae pale. NECK: JVP low. Carotids equal. THORAX: AP diameter normal. LUNGS: Clear. CARDIOVASCULAR: S1 and S2, irregular rhythm due to atrial fibrillation. ABDOMEN: Soft. No tenderness. No organomegaly. EXTREMITIES: No clubbing, no cyanosis. LABORATORY DATA: Patient on admission has hemoglobin of 4.2 and hematocrit 11. After transfusion, it has come up to hemoglobin 6.9 and hematocrit 19.5. WBC 4.3, platelet 192. Sodium 137, potassium 4.6, BUN 51, creatinine 0.8. Random glucose 339, calcium 9.2. AST and ALT normal. Total protein 5.7, albumin 3.8. Direct bilirubin 1.5, LDH 1047. Troponin less than 0.01, NT-proB natriuretic peptide 1530. Lungs with no active pulmonary disease. EKG showed atrial flutter and fibrillation, ST-T changes. DIAGNOSES: Chest pain, shortness of breath, probably on the basis of severe anemia, hemoglobin 4.2. Now, the patient has blood transfusion. Now, he is better. Chronic atrial fibrillation, chronic lymphocytic leukemia, autoimmune hemolytic anemia, recently diagnosed lung cancer, diabetes mellitus. PREVIOUS CARDIAC WORKUP: Patient had LEI cardioversion in 2010, then again patient had LEI on 06/29/2015, which showed LV size normal, mild LVH, normal systolic function of LV with ejection fraction of 55%, moderate mitral regurgitation, moderate tricuspid regurgitation, RVSP 42 mmHg and patient had LEI and cardioverted from atrial fibrillation to sinus rhythm, but the patient went back soon after that back into atrial fibrillation. Patient had stress test on 06/19/2015, which was normal with normal LV ejection fraction of 57%. PLAN: Patient is on carvedilol 3.125 p.o. b.i.d., losartan 25 mg daily, Eliquis 5 mg b.i.d., folic acid 1 mg daily, Dulcolax 5 mg b.i.d., potassium 20 mEq daily. We will cut down Lasix to 40 mg p.o. daily. The patient is on prednisone 40 mg daily. Patient is also getting IV fluid 100 mL an hour. Metolazone will be also stopped because it was given initially because of swelling of legs and swelling has improved markedly and BUN is elevated. Patient will need more blood transfusions and we will follow with you. Kelly Nunes MD
[2017-08-28] MEDS: Sodium Chloride 0.9% 1,000 ML IV SCH ×2 (00:27→00:29)
[2017-08-28] MEDS: Insulin Reg-HIGH-Coverage SC SCH (08:00)
[2017-08-28 08:20] LABS: MEAN CELL VOLUME 89.1 fl (80.0-105.0); MEAN CORPUSCULAR HEMOGLOBIN 31.6 pg (25.0-35.0); MEAN CORPUSCULAR HGB CONC 35.5 g/dl (31.0-37.0); RBC 2.47 10^6/uL (3.5-6.1); RED CELL DISTRIBUTION WIDTH 14.5 % (11.5-14.5); WHITE BLOOD COUNT 3.5 10^3/ul (4.5-11.0)
[2017-08-28 08:21] LABS: HEMOGLOBIN 7.8 g/dL (14.0-18.0)
[2017-08-28 08:51] VITALS: BP 132/58; PULSE 50; RESP 20; TEMP 97.8; O2SAT 97
--- NOTE | 2017-08-28 09:18 | CP.PCM.DIS ---
<Heather Miller - Last Filed: 08/28/17 12:24> Provider - Provider Date of Admission: 08/26/17 15:02 Attending physician: Abner Ireland MD Primary care physician: Curtis Sales MD Consults: Cardio: Dr. Nunes Heme: Dr. Hutchins GI: Dr. Hilario Time Spent in preparation of Discharge (in minutes): 35 Hospital Course - Lab Results Lab Results: Most Recent Lab Values WBC 3.5 10^3/ul (4.5-11.0) L 08/28/17 07:30 RBC 2.47 10^6/uL (3.5-6.1) L 08/28/17 07:30 Hgb 7.8 g/dL (14.0-18.0) L 08/28/17 07:30 Hct 22.0 % (42.0-52.0) L 08/28/17 07:30 MCV 89.1 fl (80.0-105.0) 08/28/17 07:30 MCH 31.6 pg (25.0-35.0) 08/28/17 07:30 MCHC 35.5 g/dl (31.0-37.0) 08/28/17 07:30 RDW 14.5 % (11.5-14.5) 08/28/17 07:30 Plt Count 166 10^3/uL (120.0-450.0) 08/28/17 07:30 MPV 10.0 fl (7.0-11.0) 08/28/17 07:30 Gran % 87.5 % (50.0-68.0) H 08/26/17 13:53 Lymph % (Auto) 10.3 % (22.0-35.0) L 08/26/17 13:53 [place] % (Auto) 1.5 % (1.0-6.0) 08/26/17 13:53 Eos % (Auto) 0.4 % (1.5-5.0) L 08/26/17 13:53 Baso % (Auto) 0.3 % (0.0-3.0) 08/26/17 13:53 Gran # 6.96 (1.4-6.5) H 08/26/17 13:53 Lymph # (Auto) 0.8 (1.2-3.4) L 08/26/17 13:53 [place] # (Auto) 0.1 (0.1-0.6) 08/26/17 13:53 Eos # (Auto) 0.0 (0.0-0.7) 08/26/17 13:53 Baso # (Auto) 0.02 K/mm3 (0.0-2.0) 08/26/17 13:53 PT 19.1 SECONDS (9.4-12.5) H 08/26/17 13:53 INR 1.66 (0.93-1.08) H 08/26/17 13:53 APTT 27.3 Seconds (25.1-36.5) 08/26/17 13:53 pO2 135 mm/Hg (30-55) H 08/27/17 08:00 VBG pH 7.50 (7.32-7.43) H 08/27/17 08:00 VBG pCO2 40.0 (40-60) 08/27/17 08:00 VBG HCO3 31.2 mmol/l (21-28) H 08/27/17 08:00 VBG Total CO2 32.4 mmol.L (22-28) H 08/27/17 08:00 VBG O2 Sat (Calc) 100.1 % (40-65) H 08/27/17 08:00 VBG Base Excess 7.4 mmol/L (0.0-2.0) H 08/27/17 08:00 VBG Potassium 3.9 mmol/L (3.6-5.2) 08/27/17 08:00 Sodium 137.0 mmol/L (132-148) 08/27/17 08:00 Chloride 106.0 mmol/L (98-107) 08/27/17 08:00 Glucose 187 mg/dl (75-110) H 08/27/17 08:00 Lactate 1.0 mmol/L (0.7-2.1) 08/27/17 08:00 FiO2 21.0 % 08/27/17 08:00 Sodium 143 mmol/L (132-148) 08/27/17 06:00 Potassium 4.0 mmol/L (3.6-5.0) 08/27/17 06:00 Chloride 102 mmol/L (98-107) 08/27/17 06:00 Carbon Dioxide 30 mmol/L (21-33) 08/27/17 06:00 Anion Gap 15 (10-20) 08/27/17 06:00 BUN 46 mg/dL (7-21) H 08/27/17 06:00 Creatinine 0.7 mg/dl (0.8-1.5) L 08/27/17 06:00 Est GFR ( Amer) > 60 08/27/17 06:00 Est GFR (Non-Af Amer) > 60 08/27/17 06:00 POC Glucose (mg/dL) 112 mg/dL (65-110) H 08/28/17 06:51 Random Glucose 155 mg/dL (70-110) H 08/27/17 06:00 Hemoglobin A1c 5.9 % (4.2-6.5) 08/27/17 06:00 Calcium 9.4 mg/dL (8.4-10.5) 08/27/17 06:00 Magnesium 2.0 mg/dL (1.7-2.2) 08/26/17 13:53 Iron 230 ug/dL (45-180) H 08/26/17 23:06 TIBC 283 ug/dL (261-462) 08/26/17 23:06 % Saturation 81 % (20-55) H 08/26/17 23:06 Ferritin 1080.0 ng/mL 08/26/17 23:04 Total Bilirubin 6.3 mg/dL (0.2-1.3) H 08/27/17 06:00 Direct Bilirubin 1.5 mg/dL (0.0-0.4) H 08/26/17 13:53 AST 27 U/L (17-59) 08/27/17 06:00 ALT 34 U/L (7-56) 08/27/17 06:00 Alkaline Phosphatase 62 U/L (38-126) 08/27/17 06:00 Ammonia < 9 umol/L (9-33) L 08/26/17 13:53 Lactate Dehydrogenase 1047 U/L (333-699) H 08/26/17 13:53 Total Creatine Kinase < 20 U/L (35-230) L 08/26/17 13:53 Troponin I 0.05 ng/mL D 08/27/17 11:30 NT-Pro-B Natriuret Pep 1530 pg/mL (0-450) H 08/26/17 13:53 Total Protein 5.6 g/dL (5.8-8.3) L 08/27/17 06:00 Albumin 3.5 g/dL (3.0-4.8) 08/27/17 06:00 Globulin 2.1 gm/dL 08/27/17 06:00 Albumin/Globulin Ratio 1.7 (1.1-1.8) 08/27/17 06:00 Vitamin B12 895 pg/mL (239-931) 08/26/17 23:04 Folate > 20.0 ng/mL 08/26/17 23:04 Venous Blood Potassium 3.9 mmol/L (3.6-5.2) 08/27/17 08:00 Urine Color Yellow (YELLOW) 08/26/17 15:15 Urine Appearance Clear (CLEAR) 08/26/17 15:15 Urine pH 6.0 (4.7-8.0) 08/26/17 15:15 Ur Specific [place] 1.020 (1.005-1.035) 08/26/17 15:15 Urine Protein Negative mg/dL (<30 mg/dL) 08/26/17 15:15 Urine Glucose (UA) 500 mg/dL (NEGATIVE) H 08/26/17 15:15 Urine Ketones Negative mg/dL (NEGATIVE) 08/26/17 15:15 Urine Blood Negative (NEGATIVE) 08/26/17 15:15 Urine Nitrate Negative (NEGATIVE) 08/26/17 15:15 Urine Bilirubin Negative (NEGATIVE) 08/26/17 15:15 Urine Urobilinogen 0.2 E.U./dL (<1 E.U./dL) 08/26/17 15:15 Ur Leukocyte Esterase Negative [place]/uL (NEGATIVE) 08/26/17 15:15 Blood Type B POSITIVE 08/26/17 14:00 Antibody Screen Negative 08/26/17 14:00 Crossmatch See Detail 08/26/17 14:00 BBK History Checked Patient has bt 08/26/17 14:00 - Hospital Course Hospital Course: This is an 87yo male with 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 Patient was transfused 5U PRBC and was started on PO Prednisone 40mg. Hgb improved as well as patient symptoms. Hematology was consulted. Dr. Hutchins recommended to continue Prednisone and to follow up next week in his office for Rituxin infusion. GI was consulted for anemia. Patient was evaluated and refused to have any procedures at this time. It is recommended that he follow up with GI as an outpatient. Cardiology was on consult and recommend for the patient to decrease his lasix 40mg from twice a day to once per day and to d/c the metalozone. He will follow up with Dr. 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 Patient will resume his other medications as prescribed. It was stressed to the patient to watch his diet because Prednisone can increase his blood sugars. Discussed discharge plan with both and patient. Both verbalized and agreed with discharge plan. - Date & Time of H&P Date of H&P: 08/27/17 Time of H&P: 08:00 Discharge Exam - Head Exam Head Exam: ATRAUMATIC, NORMOCEPHALIC - Eye Exam Eye Exam: Normal appearance, PERRL Pupil Exam: NORMAL ACCOMODATION - Respiratory Exam Respiratory Exam: Clear to PA & Lateral, NORMAL BREATHING PATTERN, UNREMARKABLE. absent: Rhonchi, Wheezes - Cardiovascular Exam Cardiovascular Exam: REGULAR RHYTHM, +S1, +S2. absent: Gallop, Rubs, Systolic Murmur - GI/Abdominal Exam GI & Abdominal Exam: Normal Bowel Sounds, Soft, Unremarkable. absent: Mass, Rebound, Rigid, Tenderness - Extremities Exam Extremities exam: normal inspection - Neurological Exam Neurological exam: Alert, CN II-XII Intact, Oriented x3 - Psychiatric Exam Psychiatric exam: Normal Affect, Normal Mood - Skin Skin Exam: Dry, Warm Discharge Plan - Discharge Medications Prescriptions: predniSONE [predniSONE Tab] 40 mg PO DAILY #14 tab - Follow Up Plan Condition: STABLE Disposition: HOME/ ROUTINE Instructions: Blood Transfusion , Jaundice, Adult (DC) Additional Instructions: 1. Take Prednisone 40mg daily x 7 days. This will increase your blood sugar. Please make sure to watch diet carefully. 2. Follow up with Dr. Hutchins next week for Rituxin infusion 3. Stop taking Metalozone. Lasix decreased to 40mg daily instead of twice per day. 4. Follow up with Dr. Nunes and primary medical doctor in the next week. If symptoms worsen, please go to the nearest emergency department Referrals: Curtis Sales MD [Primary Care Provider] - <Abner Ireland - Last Filed: 08/28/17 21:25> Provider - Provider Date of Admission: 08/26/17 15:02 Attending physician: Abner Ireland MD Primary care physician: Curtis Sales MD Hospital Course - Lab Results Lab Results: Micro Results 08/26/17 15:15 Urine,Clean Catch Urine Culture - Final 10-50,000 CFU/ML. MULTIPLE SPECIES. PROBABLE CONTAMINATION. Most Recent Lab Values WBC 3.5 10^3/ul (4.5-11.0) L 08/28/17 07:30 RBC 2.47 10^6/uL (3.5-6.1) L 08/28/17 07:30 Hgb 7.8 g/dL (14.0-18.0) L 08/28/17 07:30 Hct 22.0 % (42.0-52.0) L 08/28/17 07:30 MCV 89.1 fl (80.0-105.0) 08/28/17 07:30 MCH 31.6 pg (25.0-35.0) 08/28/17 07:30 MCHC 35.5 g/dl (31.0-37.0) 08/28/17 07:30 RDW 14.5 % (11.5-14.5) 08/28/17 07:30 Plt Count 166 10^3/uL (120.0-450.0) 08/28/17 07:30 MPV 10.0 fl (7.0-11.0) 08/28/17 07:30 Gran % 87.5 % (50.0-68.0) H 08/26/17 13:53 Lymph % (Auto) 10.3 % (22.0-35.0) L 08/26/17 13:53 [place] % (Auto) 1.5 % (1.0-6.0) 08/26/17 13:53 Eos % (Auto) 0.4 % (1.5-5.0) L 08/26/17 13:53 Baso % (Auto) 0.3 % (0.0-3.0) 08/26/17 13:53 Gran # 6.96 (1.4-6.5) H 08/26/17 13:53 Lymph # (Auto) 0.8 (1.2-3.4) L 08/26/17 13:53 [place] # (Auto) 0.1 (0.1-0.6) 08/26/17 13:53 Eos # (Auto) 0.0 (0.0-0.7) 08/26/17 13:53 Baso # (Auto) 0.02 K/mm3 (0.0-2.0) 08/26/17 13:53 PT 19.1 SECONDS (9.4-12.5) H 08/26/17 13:53 INR 1.66 (0.93-1.08) H 08/26/17 13:53 APTT 27.3 Seconds (25.1-36.5) 08/26/17 13:53 pO2 135 mm/Hg (30-55) H 08/27/17 08:00 VBG pH 7.50 (7.32-7.43) H 08/27/17 08:00 VBG pCO2 40.0 (40-60) 08/27/17 08:00 VBG HCO3 31.2 mmol/l (21-28) H 08/27/17 08:00 VBG Total CO2 32.4 mmol.L (22-28) H 08/27/17 08:00 VBG O2 Sat (Calc) 100.1 % (40-65) H 08/27/17 08:00 VBG Base Excess 7.4 mmol/L (0.0-2.0) H 08/27/17 08:00 VBG Potassium 3.9 mmol/L (3.6-5.2) 08/27/17 08:00 Sodium 137.0 mmol/L (132-148) 08/27/17 08:00 Chloride 106.0 mmol/L (98-107) 08/27/17 08:00 Glucose 187 mg/dl (75-110) H 08/27/17 08:00 Lactate 1.0 mmol/L (0.7-2.1) 08/27/17 08:00 FiO2 21.0 % 08/27/17 08:00 Sodium 143 mmol/L (132-148) 08/27/17 06:00 Potassium 4.0 mmol/L (3.6-5.0) 08/27/17 06:00 Chloride 102 mmol/L (98-107) 08/27/17 06:00 Carbon Dioxide 30 mmol/L (21-33) 08/27/17 06:00 Anion Gap 15 (10-20) 08/27/17 06:00 BUN 46 mg/dL (7-21) H 08/27/17 06:00 Creatinine 0.7 mg/dl (0.8-1.5) L 08/27/17 06:00 Est GFR ( Amer) > 60 08/27/17 06:00 Est GFR (Non-Af Amer) > 60 08/27/17 06:00 POC Glucose (mg/dL) 220 mg/dL (65-110) H 08/28/17 11:02 Random Glucose 155 mg/dL (70-110) H 08/27/17 06:00 Hemoglobin A1c 5.9 % (4.2-6.5) 08/27/17 06:00 Calcium 9.4 mg/dL (8.4-10.5) 08/27/17 06:00 Magnesium 2.0 mg/dL (1.7-2.2) 08/26/17 13:53 Iron 230 ug/dL (45-180) H 08/26/17 23:06 TIBC 283 ug/dL (261-462) 08/26/17 23:06 % Saturation 81 % (20-55) H 08/26/17 23:06 Ferritin 1080.0 ng/mL 08/26/17 23:04 Total Bilirubin 6.3 mg/dL (0.2-1.3) H 08/27/17 06:00 Direct Bilirubin 1.5 mg/dL (0.0-0.4) H 08/26/17 13:53 AST 27 U/L (17-59) 08/27/17 06:00 ALT 34 U/L (7-56) 08/27/17 06:00 Alkaline Phosphatase 62 U/L (38-126) 08/27/17 06:00 Ammonia < 9 umol/L (9-33) L 08/26/17 13:53 Lactate Dehydrogenase 1047 U/L (333-699) H 08/26/17 13:53 Total Creatine Kinase < 20 U/L (35-230) L 08/26/17 13:53 Troponin I 0.05 ng/mL D 08/27/17 11:30 NT-Pro-B Natriuret Pep 1530 pg/mL (0-450) H 08/26/17 13:53 Total Protein 5.6 g/dL (5.8-8.3) L 08/27/17 06:00 Albumin 3.5 g/dL (3.0-4.8) 08/27/17 06:00 Globulin 2.1 gm/dL 08/27/17 06:00 Albumin/Globulin Ratio 1.7 (1.1-1.8) 08/27/17 06:00 Vitamin B12 895 pg/mL (239-931) 08/26/17 23:04 Folate > 20.0 ng/mL 08/26/17 23:04 Venous Blood Potassium 3.9 mmol/L (3.6-5.2) 08/27/17 08:00 Urine Color Yellow (YELLOW) 08/26/17 15:15 Urine Appearance Clear (CLEAR) 08/26/17 15:15 Urine pH 6.0 (4.7-8.0) 08/26/17 15:15 Ur Specific [place] 1.020 (1.005-1.035) 08/26/17 15:15 Urine Protein Negative mg/dL (<30 mg/dL) 08/26/17 15:15 Urine Glucose (UA) 500 mg/dL (NEGATIVE) H 08/26/17 15:15 Urine Ketones Negative mg/dL (NEGATIVE) 08/26/17 15:15 Urine Blood Negative (NEGATIVE) 08/26/17 15:15 Urine Nitrate Negative (NEGATIVE) 08/26/17 15:15 Urine Bilirubin Negative (NEGATIVE) 08/26/17 15:15 Urine Urobilinogen 0.2 E.U./dL (<1 E.U./dL) 08/26/17 15:15 Ur Leukocyte Esterase Negative [place]/uL (NEGATIVE) 08/26/17 15:15 Blood Type B POSITIVE 08/26/17 14:00 Antibody Screen Negative 08/26/17 14:00 Crossmatch See Detail 08/26/17 14:00 BBK History Checked Patient has bt 08/26/17 14:00 - Hospital Course Hospital Course: Pt seen and examined. 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 Labs and medications have been reviewed. Spoke to pt's . He will f/u with Dr Hutchins. Hb is stable. Continue with Prednisone at home. He is not having CP. Seen by Cardiology. D/C Kingsley.
--- NOTE | 2017-08-28 09:58 | CP.PCM.PN ---
Subjective - Date & Time of Evaluation Date of Evaluation: 08/28/17 Time of Evaluation: 06:35 - Subjective Subjective: Lying in bed, awake, denies chest pain, denies shortness of breath Reason for consultation and follow up: Cardiac evaluation, chest pain, shortness of breath, atrial fibrillation,CHF,DM Seen and examined by me and Dr. Rose Objective - Vital Signs/Intake and Output Vital Signs (last 24 hours): Temp Pulse Resp BP Pulse Ox 97.8 F 50 L 20 132/58 L 97 08/28/17 06:00 08/28/17 06:00 08/28/17 06:00 08/28/17 06:00 08/28/17 06:00 Intake and Output: 08/28/17 08/28/17 06:59 18:59 Intake Total 832 Balance 832 - Medications Medications: Current Medications Acetaminophen (Tylenol 325mg Tab) 650 mg PO Q4H PRN PRN Reason: Pain, Mild (1-3) Apixaban (Eliquis) 5 mg PO BID [facility] PRN Reason: Protocol Carvedilol (Coreg) 3.125 mg PO BID [facility] Last Admin: 08/27/17 19:36 Dose: 3.125 mg Folic Acid (Folic Acid) 1 mg PO DAILY [facility] Last Admin: 08/27/17 09:34 Dose: 1 mg Furosemide (Lasix) 40 mg PO DAILY [facility] Glipizide (Glucotrol) 5 mg PO BID [facility] Last Admin: 08/27/17 19:36 Dose: 5 mg Sodium Chloride (Sodium Chloride 0.9%) 1,000 mls @ 100 mls/hr IV .Q10H [facility] Last Admin: 08/28/17 00:29 Dose: 100 mls/hr Insulin Human Regular (Humulin R High) 0 units SC ACHS [facility] PRN Reason: Protocol Last Admin: 08/28/17 08:00 Dose: Not Given Losartan Potassium (Cozaar) 25 mg PO DAILY [facility] Last Admin: 08/27/17 09:34 Dose: 25 mg Morphine Sulfate (Morphine) 2 mg IVP Q4H PRN PRN Reason: Pain, severe (8-10) Oxycodone/Acetaminophen (Percocet 5/325 Mg Tab) 1 tab PO Q4H PRN PRN Reason: Pain, moderate (4-7) Stop: 08/29/17 20:18 Potassium Chloride (K-Dur 20 Meq Er Tab) 20 meq PO DAILY [facility] Last Admin: 08/27/17 09:35 Dose: 20 meq Prednisone (Prednisone Tab) 40 mg PO DAILY [facility] Last Admin: 08/27/17 09:34 Dose: 40 mg - Labs Labs: 08/28/17 07:30 08/27/17 06:00 PT 19.1 SECONDS (9.4-12.5) H 08/26/17 13:53 INR 1.66 (0.93-1.08) H 08/26/17 13:53 APTT 27.3 Seconds (25.1-36.5) 08/26/17 13:53 - Constitutional Appears: No Acute Distress - Head Exam Head Exam: NORMOCEPHALIC - Eye Exam Eye Exam: Normal appearance - ENT Exam ENT Exam: Mucous Membranes Moist - Respiratory Exam Respiratory Exam: Decreased Breath Sounds, NORMAL BREATHING PATTERN - Cardiovascular Exam Cardiovascular Exam: +S1, +S2 Additional comments: ariana cath - GI/Abdominal Exam GI & Abdominal Exam: Soft, Normal Bowel Sounds - Extremities Exam Extremities Exam: Normal Capillary Refill Additional comments: 1-2+ edema - Neurological Exam Neurological Exam: Alert, Awake, Oriented x3 - Psychiatric Exam Psychiatric exam: Normal Affect, Normal Mood - Skin Skin Exam: Intact, Normal Color, Warm Additional comments: jaundiced Assessment and Plan - Assessment and Plan (Free Text) Assessment: A 87 year old male who came in to the ER due to generalized weakness, chest pain ,shortness of breath x 2 days. In ER hemoglobin was 4.2. History of CLL with metastasis to lungs, on chemotherapy. autoimmune hemolytic anemia, Afib on Eloquis, CHF,diabetes. History of appendectomy and cholecystectomy. 3 units PRBC transfused. Plan: Feeling much better Repeat hemoglobin post transfusion-7.8 Chest pain secondary to severe anemia No evidence of myocardial ischemia EKG Atrial flutter controlled 3:1 68/min Last ECHO 06/27- Moderate TR and MR LVEF 55% Last Stress Test 06/27- normal Continue current treatment On Eliquis 5 mg BID, Lasix 4 mg daily, Cozaar 25 mg daily, Kdur 20 meq daily. Continue current medications Possible discharge home today Follow up in office 1-2 weeks Will follow up Plan and treatment discuseed with Dr. Rose
[2017-08-28] MEDS: Potassium Chloride 20 mEq ER Tab PO SCH (10:39)
--- NOTE | 2017-08-28 17:19 | CP.PCM.PN ---
Subjective - Date & Time of Evaluation Date of Evaluation: 08/28/17 Time of Evaluation: 10:55 - Subjective Subjective: Seen and examined at the bedside earlier today, at bedside. Patient with no complaints. No reports of acute overnight events. Denies nausea, vomiting, or overt GI bleed. Tolerating oral intake. Objective - Vital Signs/Intake and Output Vital Signs (last 24 hours): Temp Pulse Resp BP Pulse Ox 97.8 F 50 L 20 132/58 L 97 08/28/17 06:00 08/28/17 10:39 08/28/17 06:00 08/28/17 10:39 08/28/17 06:00 Intake and Output: 08/28/17 08/28/17 06:59 18:59 Intake Total 832 Balance 832 - Labs Labs: 08/28/17 07:30 08/27/17 06:00 PT 19.1 SECONDS (9.4-12.5) H 08/26/17 13:53 INR 1.66 (0.93-1.08) H 08/26/17 13:53 APTT 27.3 Seconds (25.1-36.5) 08/26/17 13:53 - Constitutional Appears: No Acute Distress - Head Exam Head Exam: NORMOCEPHALIC - Eye Exam Eye Exam: Scleral icterus - ENT Exam ENT Exam: Mucous Membranes Moist - Neck Exam Neck Exam: Normal Inspection - Respiratory Exam Respiratory Exam: NORMAL BREATHING PATTERN. absent: Respiratory Distress - Cardiovascular Exam Cardiovascular Exam: +S1, +S2 - GI/Abdominal Exam GI & Abdominal Exam: Soft, Normal Bowel Sounds. absent: Guarding, Tenderness, Rebound - Extremities Exam Extremities Exam: absent: Calf Tenderness, Pedal Edema - Neurological Exam Neurological Exam: Alert, Awake, Oriented x3 - Skin Skin Exam: Dry (jaundice), Warm Assessment and Plan - Assessment and Plan (Free Text) Assessment: Assessment: Autoimmune hemolytic anemia Symptomatic anemia History of CLL with metastasis to lung Atrial fibrillation History and IDDM Plan: Continue to monitor total bilirubin Monitor H&H and transfuse as necessary Hematology follow-up Patient plan for discharge today discussed with patient and at bedside any symptoms of GI bleed: melena or bright red blood per rectum contact PCP Seen and discussed with Dr. Hilario
== END 2017-08-28 15:05 | disposition home or self-care (01) | DRG 809 ==
LOC: ED 12:50 → ERH 15:02 → 2RSO 16:34 → 5RSO 08-27 11:42
PROVIDERS: ADMIT Internal Medicine Nephrology; ATTEND Internal Medicine Nephrology
PROC: 30233N1 Transfusion of Nonautologous Red Blood Cells into Peripheral Vein, Percutaneous Approach (ICD-10-PCS; principal; 2017-08-26)
DX: D59.1 Other autoimmune hemolytic anemias (principal); C78.00 Secondary malignant neoplasm of unspecified lung; C91.10 Chronic lymphocytic leukemia of B-cell type not having achieved remission; E11.9 Type 2 diabetes mellitus without complications; I50.9 Heart failure, unspecified; I48.2 Chronic atrial fibrillation; I48.0 Paroxysmal atrial fibrillation; R07.9 Chest pain, unspecified; I08.1 Rheumatic disorders of both mitral and tricuspid valves; Z85.820 Personal history of malignant melanoma of skin; Z90.49 Acquired absence of other specified parts of digestive tract; Z87.891 Personal history of nicotine dependence

== ENCOUNTER 2018-05-05 10:03 | Outpatient (CLI) | payer MEDICARE, BC | END 2018-05-05 10:04 | disposition home or self-care (01) | LOC: RAD 10:03 ==

== ENCOUNTER 2018-06-24 21:15 | Observation (INO) | payer MEDICARE, BC ==
[2018-06-24 21:28] VITALS: BMI 27.5
--- NOTE | 2018-06-24 22:07 | ED PDOC ---
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 Patient states he has been feeling fatigued today, took the patient's temperature at home and noted he was febrile at 102F. Patient also reports a cough. Patient was advised to come to the Emergency department by his PMD. notes patient recently had an outpatient blood transfusion 3 days ago. Patient received 2 Tylenol at home for fever with improvement. Patient did not receive an influenza vaccination this year. Patient denies any chest pain, shortness of breath, nausea, vomiting, diarrhea, urinary symptoms, back pain, neck pain, headache, dizziness, or any other complaints. PMD: Dr. Sales Heme/Onco: Dr. Stoddard Plating Engineer: Dr. Tinajero Symptom Onset: Gradual Symptom Course: Unchanged Activities at Onset: Light Context: Home Past Medical History - Provider Review Nursing Documentation Reviewed: Yes - Infectious Disease Hx of Infectious Diseases: None - Cardiac Hx Cardiac Disorders: Yes Hx Cardiac Arrhythmia: Yes (afib) Hx Congestive Heart Failure: Yes Hx Pacemaker: No Hx Peripheral Edema: Yes (ble +1 pitting edema) Other/Comment: [id number] and 2016 - Pulmonary Other/Comment: stage 4 left lung ca started 1st treatment 6 days ago - Neurological Hx Paralysis: No - HEENT Hx HEENT Disorder: No - Endocrine/Metabolic Hx Diabetes Mellitus Type 2: Yes - Hematological/Oncological Hx Blood Disorders: Yes (CLL) Hx Anemia: Yes (blood transfusion need to warm blood) Hx Blood Transfusions: Yes Hx Blood Transfusion Reaction: No Hx Cancer: Yes (cll leukemia, skin ca, left lung ca) Hx Chemotherapy: Yes (cll leukemia skin ca lung ca) Hx Cirrhosis: Yes Other/Comment: 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 pt dx with cll 12 yrs ago having chemo every 6-8 months ever since finished 2014, then pt was dx with stage 4 left lung ca started 1st chemo tx 6 days ago tx by dr stoddard. 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) Other/Comment: chemo therapy, AIHA - Psychiatric Hx Emotional Abuse: No Hx Physical Abuse: No Hx Substance Use: No - Surgical History Hx Appendectomy: Yes Hx Cholecystectomy: Yes Hx Gastric Bypass Surgery: No Hx Liver Transplant: No Hx Splenectomy: No - Anesthesia Hx Anesthesia: Yes Hx Anesthesia Reactions: No Hx Malignant Hyperthermia: No - Suicidal Assessment Feels Threatened In Home Enviroment: No Family/Social History - Physician Review Nursing Documentation Reviewed: Yes Family/Social History: Unknown Family HX Smoking Status: Former Smoker Hx Alcohol Use: No Hx Substance Use: No Allergies/Home Meds Allergies/Adverse Reactions: Allergies No Known Allergies Allergy (Verified 06/24/18 21:34) Home Medications: Home Meds Medication Instructions Recorded Confirmed Glipizide [Glucotrol] 5 mg PO BID 06/27/15 06/26/18 Losartan [Cozaar] 25 mg PO DAILY 07/10/17 06/26/18 Folic Acid 1 mg PO DAILY 08/26/17 06/26/18 Apixaban [Eliquis] 5 mg PO DAILY 06/24/18 06/26/18 Review of Systems - Physician Review All systems were reviewed & negative as marked: Yes - Review of Systems Constitutional: Fatigue, Fevers Eyes: Normal ENT: Normal Respiratory: Cough. absent: SOB Cardiovascular: Normal. absent: Chest Pain Gastrointestinal: Normal. absent: Abdominal Pain, Diarrhea, Nausea, Vomiting Genitourinary Male: Normal. absent: Dysuria, Frequency, Hematuria, Urinary Output Changes Musculoskeletal: Normal. absent: Back Pain, Neck Pain Skin: Normal. absent: Rash Neurological: Normal. absent: Headache, Dizziness Endocrine: Normal Hemo/Lymphatic: Normal Psychiatric: Normal Physical Exam Vital Signs Reviewed: Yes Vital Signs Temp Pulse Resp BP Pulse Ox 06/24/18 21:28 98.2 F 57 L 18 133/51 L 94 L Temperature: Afebrile Blood Pressure: Normal Pulse: Regular Respiratory Rate: Normal Appearance: Positive for: Well-Appearing, Non-Toxic, Comfortable Pain Distress: None Mental Status: Positive for: Alert and Oriented X 3 - Systems Exam Head: Present: Atraumatic, Normocephalic Pupils: Present: PERRL Extroacular Muscles: Present: EOMI Conjunctiva: Present: Normal Mouth: Present: Moist Mucous Membranes Neck: Present: Normal Range of Motion Respiratory/Chest: Present: Clear to Auscultation, Good Air Exchange. No: Respiratory Distress, Accessory Muscle Use Cardiovascular: Present: Normal S1, S2, Irregular Rhythm (Irregular regular rhythm). No: Murmurs Abdomen: No: Tenderness, Distention, Peritoneal Signs Back: Present: Normal Inspection Upper Extremity: Present: Normal Inspection. No: Cyanosis, Edema Lower Extremity: Present: Normal Inspection. No: Edema Neurological: Present: GCS=15, CN II-XII Intact, Speech Normal Skin: Present: Warm, Dry, Normal Color. No: Rashes Psychiatric: Present: Alert, Oriented x 3, Normal Insight, Normal Concentration Medical Decision Making ED Course and Treatment: 06/24/18 22:06 Impression: 88 year old male complaining of fever, fatigue, and cough. Plan: -- EKG -- Chest X-Ray -- Labs, carduac enzymes, BNP, blood cultures -- Reassess and disposition Prior Visits: Notes and results from previous visits were reviewed. Progress Notes: Reviewed EKG, atrial flutter at 64 bpm. Non-specific ST/T wave changes. 06/24/18 23:35 CXR reviewed, shows no acute processes. 06/25/18 00:[address] Ireland, who is aware and agrees with plan. Accepts pt in to his service. Pt will go to Telemetry observation for fever. - Lab Interpretations I have reviewed the lab results: Yes - RAD Interpretation Dry Cans Operator: ED Physician - EKG Interpretation Interpreted by ED Physician: Yes Type: 12 lead EKG - Scribe Statement The provider has reviewed the documentation as recorded by the Cam Olivo Provider Scribe Attestation: All medical record entries made by the Scribe were at my direction and personally dictated by me. I have reviewed the chart and agree that the record accurately reflects my personal performance of the history, physical exam, medical decision making, and the department course for this patient. I have also personally directed, reviewed, and agree with the discharge instructions and disposition. Disposition/Present on Arrival - Present on Arrival Any Indicators Present on Arrival: No History of DVT/PE: No History of Uncontrolled Diabetes: No Urinary Catheter: No History of Decub. Ulcer: No History Surgical Site Infection Following: None - Disposition Have Diagnosis and Disposition been Completed?: Yes Diagnosis: Fever Disposition: HOSPITALIZED Disposition Time: 00:45 Condition: GUARDED
[2018-06-24 22:27] LABS: BASO # 0.03 K/mm3 (0.0-2.0); BASO % 0.5 % (0.0-3.0); EOS # 0.1 (0.0-0.7); LYMPH # 1.2 (1.2-3.4); LYMPH % 20.1 % (22.0-35.0); MEAN CELL VOLUME 99.2 fl (80.0-105.0); MEAN CORPUSCULAR HEMOGLOBIN 35.7 pg (25.0-35.0); MEAN PLATELET VOLUME 10.1 fl (7.0-11.0); MONO # 1.1 (0.1-0.6); MONO % 18.2 % (1.0-6.0); RBC 2.52 10^6/uL (3.5-6.1); RED CELL DISTRIBUTION WIDTH 19.9 % (11.5-14.5)
[2018-06-24 22:35] LABS: INR 1.42; PARTIAL THROMBOPLASTIN TIME 34.9 Seconds (26.9-38.3); PROTHROMBIN TIME 15.8 SECONDS (9.4-12.5)
[2018-06-24 22:44] LABS: ALB/GLOB RATIO 1.9 (1.1-1.8); ALT/SGPT 19 U/L (7-56); AST/SGOT 29 U/L (17-59); BLOOD UREA NITROGEN 22 mg/dL (7-21); CALCIUM 8.8 mg/dL (8.4-10.5); GFR NON-AFRICAN AMERICAN > 60
[2018-06-24 22:59] LABS: B-TYPE NATRIURETIC PEPTIDE 3820 pg/mL (0-450); TROPONIN I 0.03 ng/mL
[2018-06-25] MEDS ORDERED: Piperacillin/Tazobact 3.375 gm 100 ML IVPB STA (01:02)
[2018-06-25] MEDS ORDERED: Sodium Chloride 0.9% 1,000 ML IV STA (02:09)
--- NOTE | 2018-06-25 06:51 | CP.PCM.HP ---
<Nesha Balderas - Last Filed: 06/25/18 17:44> History of Present Illness - History of Present Illness History of Present Illness: IM Resident H&P for Dr. Ireland's service CC: Fever of 102 Patient is an 88 y/o Male with PMH of 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 As per patient he had 2 pints of prbc transfusion on Friday, and since then he's been feeling weak and fatigued. Patient states his took the temperature yesterday and it was 102. Patient denies cough, though he states he had cough few days ago which resolved. Denies diarrhea, nausea or vomiting. Denies chills. No fever since admission. No dysurea. Past medical history: CLL met to Lung cancer, Autoimmune hemolytic anemia, NIDDM, a.fib (on Eliquis), gets frequent blood transfusions. Past surgical history: appendectomy, cholecystectomy Home meds: As per MAR Allergies: NKDA Social history: Denies tobacco, EtOH or drug use. Lives with . Is independent in ADLs PMD: Dr. Sales Heme/Onc: Dr. Stoddard Present on Admission - Present on Admission Any Indicators Present on Admission: No History of DVT/PE: No History of Uncontrolled Diabetes: No Urinary Catheter: No Decubitus Ulcer Present: No History Surgical Site Infection Following: None Review of Systems - Constitutional Constitutional: Fatigue, Fever. absent: Chills, Headache, Lethargy, Weakness - EENT Eyes: absent: Blurred Vision Ears: absent: Dizziness Nose/Mouth/Throat: absent: Epistaxis, Nasal Congestion, Nasal Discharge, Throat Swelling, Facial Pain - Cardiovascular Cardiovascular: Pedal Edema. absent: Chest Pain, Chest Pain at Rest, Claudication, Dyspnea, Edema, Leg Edema, Lightheadedness, Palpitations - Respiratory Respiratory: absent: Cough, Dyspnea, Hemoptysis, Wheezing - Gastrointestinal Gastrointestinal: absent: Abdominal Pain, Bloating, Constipation, Diarrhea, Dysphagia, Nausea, Vomiting - Genitourinary Genitourinary: absent: Difficulty Urinating, Dysuria, Hematuria - Musculoskeletal Musculoskeletal: absent: Arthralgias, Atrophy, Back Pain - Integumentary Integumentary: Swelling. absent: Acne - Neurological Neurological: absent: Dizziness, Weakness - Psychiatric Psychiatric: absent: Anxiety, Confusion - Endocrine Endocrine: Fatigue. absent: Polydipsia, Polyphagia, Polyuria - Hematologic/Lymphatic Hematologic: Lymphadenopathy. absent: Easy Bleeding, Easy Bruising Past Patient History - Infectious Disease Hx of Infectious Diseases: None - Tetanus Immunizations Tetanus Immunization: Unknown - Past Social History Smoking Status: Former Smoker Alcohol: None Drugs: Denies Home Situation {Lives}: With Family - CARDIAC Hx Cardiac Disorders: Yes Hx Cardia Arrhythmia: Yes (afib) Hx Congestive Heart Failure: Yes Hx Pacemaker: No Hx Peripheral Edema: Yes (ble +1 pitting edema) Other/Comment: [id number] and 2016 - PULMONARY Hx Respiratory Disorders: (lung CA) Other/Comment: stage 4 left lung ca started 1st treatment 6 days ago - NEUROLOGICAL Hx Paralysis: No - HEENT Hx HEENT Problems: (glasses, [place]) - ENDOCRINE/METABOLIC Hx Diabetes Mellitus Type 2: Yes - HEMATOLOGICAL/ONCOLOGICAL Hx Blood Disorders: Yes (CLL, cold agglutinin disease(auto immune hemolytic anemia)) Hx Anemia: Yes (blood transfusion need to warm blood) Hx Cancer: Yes (CLL leukemia, skin ca, left lung ca) Hx Chemotherapy: Yes (CLL leukemia skin ca lung ca) Hx Cirrhosis: Yes Other/Comment: 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 pt dx with cll 12 yrs ago having chemo every 6-8 months ever since finished 2014, then pt was dx with stage 4 left lung ca started 1st chemo tx 6 days ago tx by [address] stoddard. 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) Other/Comment: chemo therapy, AIHA - PSYCHIATRIC Hx Emotional Abuse: No Hx Physical Abuse: No - SURGICAL HISTORY Hx Surgeries: (gall bladder removal, appendectomy) Hx Appendectomy: Yes Hx Cholecystectomy: Yes Hx Gastric Bypass Surgery: No Hx Liver Transplant: No Hx Splenectomy: No - ANESTHESIA Hx Anesthesia: Yes Hx Anesthesia Reactions: No Hx Malignant Hyperthermia: No Meds Allergies/Adverse Reactions: Allergies Allergy/AdvReac Type Severity Reaction Status Date / Time No Known Allergies Allergy Verified 06/24/18 21:34 Physical Exam - Constitutional Appears: No Acute Distress, Cachectic, Chronically Ill - Head Exam Head Exam: ATRAUMATIC, NORMAL INSPECTION, NORMOCEPHALIC - Eye Exam Eye Exam: EOMI, Normal appearance, PERRL. absent: Scleral icterus Pupil Exam: NORMAL ACCOMODATION - ENT Exam ENT Exam: Mucous Membranes Moist - Neck Exam Neck exam: Positive for: Lymphadenopathy, Normal Inspection. Negative for: Meningismus, Thyromegaly - Respiratory Exam Respiratory Exam: Clear to Auscultation Bilateral, NORMAL BREATHING PATTERN. absent: Rales, Rhonchi, Wheezes, Respiratory Distress, Stridor - Cardiovascular Exam Cardiovascular Exam: Irregular Rhythm, +S1, +S2. absent: Gallop, RRR, Rubs, Systolic Murmur - GI/Abdominal Exam GI & Abdominal Exam: Normal Bowel Sounds, Soft. absent: Distended, Guarding, Rebound, Rigid, Tenderness - Extremities Exam Extremities exam: Positive for: pedal edema (+3) - Back Exam Back exam: NORMAL INSPECTION - Neurological Exam Neurological exam: Alert, Oriented x3 - Psychiatric Exam Psychiatric exam: Normal Affect, Normal Mood - Skin Skin Exam: Normal Color, Warm Results - Vital Signs Recent Vital Signs: Last Vital Signs Temp 98.0 F 06/25/18 06:00 Pulse 58 L 06/25/18 06:00 Resp 19 06/25/18 06:00 BP 144/51 L 06/25/18 06:00 Pulse Ox 93 L 06/25/18 06:00 - Labs Result Diagrams: 06/24/18 22:20 06/24/18 22:20 Labs: Laboratory Results - last 24 hr 06/24/18 06/24/18 06/24/18 22:20 22:20 22:20 WBC 6.0 D RBC 2.52 L Hgb 9.0 L Hct 25.0 L MCV 99.2 MCH 35.7 H MCHC 36.0 RDW 19.9 H Plt Count 265 MPV 10.1 Neut % (Auto) 59.2 Lymph % (Auto) 20.1 L [place] % (Auto) 18.2 H Eos % (Auto) 2.0 Baso % (Auto) 0.5 Lymph # (Auto) 1.2 [place] # (Auto) 1.1 H Eos # (Auto) 0.1 Baso # (Auto) 0.03 Absolute Neuts (auto) 3.54 PT 15.8 H INR 1.42 APTT 34.9 Sodium 136 Potassium 3.8 Chloride 100 Carbon Dioxide 26 Anion Gap 14 BUN 22 H Creatinine 1.1 Est GFR ( Amer) > 60 Est GFR (Non-Af Amer) > 60 Random Glucose 106 Calcium 8.8 Magnesium 2.0 Total Bilirubin 4.6 H AST 29 ALT 19 Alkaline Phosphatase 101 Lactate Dehydrogenase 490 Total Creatine Kinase < 20 L Troponin I 0.03 D NT-Pro-B Natriuret Pep 3820 H Total Protein 6.1 Albumin 4.0 Globulin 2.1 Albumin/Globulin Ratio 1.9 H Influenza Typ A,B (EIA) 06/24/18 22:58 WBC RBC Hgb Hct MCV MCH MCHC RDW Plt Count MPV Neut % (Auto) Lymph % (Auto) [place] % (Auto) Eos % (Auto) Baso % (Auto) Lymph # (Auto) [place] # (Auto) Eos # (Auto) Baso # (Auto) Absolute Neuts (auto) PT INR APTT Sodium Potassium Chloride Carbon Dioxide Anion Gap BUN Creatinine Est GFR ( Amer) Est GFR (Non-Af Amer) Random Glucose Calcium Magnesium Total Bilirubin AST ALT Alkaline Phosphatase Lactate Dehydrogenase Total Creatine Kinase Troponin I NT-Pro-B Natriuret Pep Total Protein Albumin Globulin Albumin/Globulin Ratio Influenza Typ A,B (EIA) Negative for flu a/b Assessment & Plan - Assessment and Plan (Free Text) Assessment: 1) Fever ~48 post transfusion likely due to febrile non hemolytic transfusion reaction, r/o bacterial contamination. Less likely hemolytic transfusion reactions 2) CLL with lung met 3) Autoimmune hemolytic anemia 4) NIDDM 5) Atrial fibrillation on eliquis, now in atrial flutter 6) Bradycardia 7) HTN 8) Ros[place] Lower extremities edema Plan: Patient is currently afebrile, though had fever of 102 at home, and is immunosupressed. Will rule out infections. Chest x-ray with no acute findings, blood culture was sent, pending. Will sent ua and urine cultures. Patient received zosyn in the ED. ID is consulted. Since patient is hemodynamically stable, and not septic, will hold off antibiotics and wait for blood cultures. Patient with a-flutter on ekg which is new, gold miner is consulted. Holding coreg due to bradycardia. Will continue with eliquis for afib, lasix for LE edema.On folic acid. Continue glipizide and insulin sliding scale for DM. BP is elevated likely from IVF, will stop fluids, and continue with losartan. Patient seen, examined and case discussed with Dr. Ireland. - Date & Time Date: 06/25/18 Time: 10:10 <Abner Ireland S - Last Filed: 06/26/18 18:20> Results - Vital Signs Recent Vital Signs: Last Vital Signs Temp 98 F 06/26/18 12:00 Pulse 60 06/26/18 12:00 Resp 20 06/26/18 12:00 BP 124/64 06/26/18 12:00 Pulse Ox 97 06/26/18 05:54 - Labs Result Diagrams: 06/26/18 06:30 06/26/18 06:30 Labs: Laboratory Results - last 24 hr 06/26/18 06/26/18 06/26/18 06:30 06:30 06:30 WBC 4.2 L D RBC 2.69 L Hgb 9.4 L Hct 26.8 L MCV 99.6 MCH 34.9 MCHC 35.1 RDW 19.9 H Plt Count 243 MPV 10.2 Neut % (Auto) 37.1 L Lymph % (Auto) 39.3 H [place] % (Auto) 18.6 H Eos % (Auto) 4.3 Baso % (Auto) 0.7 Lymph # (Auto) 1.7 [place] # (Auto) 0.8 H Eos # (Auto) 0.2 Baso # (Auto) 0.03 Absolute Neuts (auto) 1.56 Sodium 139 Potassium 3.8 Chloride 105 Carbon Dioxide 27 Anion Gap 11 BUN 16 Creatinine 0.8 Est GFR ( Amer) > 60 Est GFR (Non-Af Amer) > 60 Random Glucose 108 Hemoglobin A1c 5.7 Calcium 9.0 Phosphorus 4.2 Magnesium 2.1 Total Bilirubin 3.0 H AST 27 ALT 18 Alkaline Phosphatase 90 Total Protein 5.5 L Albumin 3.6 Globulin 1.9 Albumin/Globulin Ratio 1.9 H Triglycerides 72 Cholesterol 69 L LDL Cholesterol Direct 39 HDL Cholesterol 25 L TSH 3rd Generation 06/26/18 06:30 WBC RBC Hgb Hct MCV MCH MCHC RDW Plt Count MPV Neut % (Auto) Lymph % (Auto) [place] % (Auto) Eos % (Auto) Baso % (Auto) Lymph # (Auto) [place] # (Auto) Eos # (Auto) Baso # (Auto) Absolute Neuts (auto) Sodium Potassium Chloride Carbon Dioxide Anion Gap BUN Creatinine Est GFR ( Amer) Est GFR (Non-Af Amer) Random Glucose Hemoglobin A1c Calcium Phosphorus Magnesium Total Bilirubin AST ALT Alkaline Phosphatase Total Protein Albumin Globulin Albumin/Globulin Ratio Triglycerides Cholesterol LDL Cholesterol Direct HDL Cholesterol TSH 3rd Generation 3.05 Assessment & Plan - Assessment and Plan (Free Text) Assessment: Pt was seen and examined. This is a late entry. The note of the medical radiation therapist was reviewed and I agree the note. The plan of care was discussed with the resident.
[2018-06-25] MEDS ORDERED: Piperacillin/Tazobact 3.375 gm 100 ML IVPB SCH (09:00)
[2018-06-25 09:06] LABS: IRON 36 ug/dL (45-180)
[2018-06-25 09:16] LABS: % IRON SATURATION 14 % (20-55); TOTAL IRON BINDING CAPACITY 258 ug/dL (261-462)
--- NOTE | 2018-06-25 10:28 | CP.PCM.CON ---
<Matt Banda - Last Filed: 06/25/18 10:58> History of Present Illness - History of Present Illness History of Present Illness: Matt Banda D.O. 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 Infectious disease consultation was requested for fever. Patient was seen and examined at bedside with present. relates the patient received a blood transfusion on 06/22. Patient states that he received 2 pints and that these 4 units #11 of 12 of 12 that were planned. keeps a very tight records of all of his medical problems and notes that she got worried because he was very tired yesterday and when she took his temperature is 102 Fahrenheit. Of note, patient's was using a thermometer which he just placed on the forehead and to change his color to indicate the temperature. W demetra at this time states that she believes that this is likely to to the blood transfusion as he has had these issues before. Patient does not complain of any fevers, chest pain, chills, nausea, vomiting, diarrhea, constipation, shortness of breath, lightheadedness, confusion, dizziness, dysuria, frequency, or any other symptoms at this time. Patient admits that he feels much better than he did yesterday. Review of Systems - Review of Systems All systems: reviewed and no additional remarkable complaints except (as per HPI) Past Patient History - Infectious Disease Hx of Infectious Diseases: None - Past Social History Smoking Status: Former Smoker - CARDIAC Hx Cardiac Disorders: Yes Hx Cardia Arrhythmia: Yes (afib) Hx Congestive Heart Failure: Yes Hx Pacemaker: No Hx Peripheral Edema: Yes (ble +1 pitting edema) Other/Comment: [id number] and 2016 - PULMONARY Hx Respiratory Disorders: (lung CA) Other/Comment: stage 4 left lung ca started 1st treatment 6 days ago - NEUROLOGICAL Hx Paralysis: No - HEENT Hx HEENT Problems: (glasses, [place]) - ENDOCRINE/METABOLIC Hx Diabetes Mellitus Type 2: Yes - HEMATOLOGICAL/ONCOLOGICAL Hx Blood Disorders: Yes (CLL, cold agglutinin disease(auto immune hemolytic anemia)) Hx Anemia: Yes (blood transfusion need to warm blood) Hx Cancer: Yes (CLL leukemia, skin ca, left lung ca) Hx Chemotherapy: Yes (CLL leukemia skin ca lung ca) Hx Cirrhosis: Yes Other/Comment: 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 pt dx with cll 12 yrs ago having chemo every 6-8 months ever since finished 2014, then pt was dx with stage 4 left lung ca started 1st chemo tx 6 days [address] tx by [address] stoddard. 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) Other/Comment: chemo therapy, AIHA - PSYCHIATRIC Hx Emotional Abuse: No Hx Physical Abuse: No - SURGICAL HISTORY Hx Surgeries: (gall bladder removal, appendectomy) Hx Appendectomy: Yes Hx Cholecystectomy: Yes Hx Gastric Bypass Surgery: No Hx Liver Transplant: No Hx Splenectomy: No - ANESTHESIA Hx Anesthesia: Yes Hx Anesthesia Reactions: No Hx Malignant Hyperthermia: No Meds Allergies/Adverse Reactions: Allergies Allergy/AdvReac Type Severity Reaction Status Date / Time No Known Allergies Allergy Verified 06/24/18 21:34 - Medications Medications: Current Medications Acetaminophen (Tylenol 325mg Tab) 650 mg PO Q4H PRN PRN Reason: Fever >100.5 F Furosemide (Lasix) 40 mg PO DAILY [facility] Last Admin: 06/25/18 09:45 Dose: 40 mg Glipizide (Glucotrol) 5 mg PO ACBD [facility] Last Admin: 06/25/18 08:25 Dose: 5 mg Sodium Chloride (Sodium Chloride 0.9%) 1,000 mls @ 60 mls/hr IV .[id number] STA Stop: 06/25/18 18:48 Last Admin: 06/25/18 03:40 Dose: 60 mls/hr Losartan Potassium (Cozaar) 25 mg PO DAILY [facility] Last Admin: 06/25/18 09:45 Dose: 25 mg Physical Exam - Constitutional Appears: Non-toxic, No Acute Distress - Head Exam Head Exam: ATRAUMATIC, NORMOCEPHALIC - Eye Exam Eye Exam: EOMI, PERRL. absent: Scleral icterus - ENT Exam ENT Exam: Mucous Membranes Moist, Normal Oropharynx Additional comments: nares patent, no polyps or large meatus appreciated - Neck Exam Neck exam: Positive for: Normal Inspection. Negative for: Lymphadenopathy - Respiratory Exam Respiratory Exam: Clear to Auscultation Bilateral. absent: Rales, Rhonchi, Wheezes - Cardiovascular Exam Cardiovascular Exam: +S1, +S2. absent: Gallop, Rubs - GI/Abdominal Exam GI & Abdominal Exam: Normal Bowel Sounds, Soft. absent: Distended, Tenderness - Extremities Exam Extremities exam: Positive for: normal capillary refill. Negative for: calf tenderness - Neurological Exam Neurological exam: Alert, CN II-XII Intact, Oriented x3 - Skin Additional comments: multiple age related skin changes including some senile purpura Results - Vital Signs Recent Vital Signs: Last Vital Signs Temp 98.0 F 06/25/18 06:00 Pulse 53 L 06/25/18 09:45 Resp 19 06/25/18 06:00 BP 160/69 H 06/25/18 09:45 Pulse Ox 93 L 06/25/18 06:00 - Labs Result Diagrams: 06/24/18 22:20 06/24/18 22:20 Labs: Laboratory Results - last 24 hr 06/24/18 06/24/18 06/24/18 22:20 22:20 22:20 WBC 6.0 D RBC 2.52 L Hgb 9.0 L Hct 25.0 L MCV 99.2 MCH 35.7 H MCHC 36.0 RDW 19.9 H Plt Count 265 MPV 10.1 Neut % (Auto) 59.2 Lymph % (Auto) 20.1 L Carter % (Auto) 18.2 H Eos % (Auto) 2.0 Baso % (Auto) 0.5 Lymph # (Auto) 1.2 Carter # (Auto) 1.1 H Eos # (Auto) 0.1 Baso # (Auto) 0.03 Absolute Neuts (auto) 3.54 Retic Count PT 15.8 H INR 1.42 APTT 34.9 Sodium 136 Potassium 3.8 Chloride 100 Carbon Dioxide 26 Anion Gap 14 BUN 22 H Creatinine 1.1 Est GFR ( Amer) > 60 Est GFR (Non-Af Amer) > 60 Random Glucose 106 Calcium 8.8 Magnesium 2.0 Iron TIBC % Saturation Total Bilirubin 4.6 H AST 29 ALT 19 Alkaline Phosphatase 101 Lactate Dehydrogenase 490 Total Creatine Kinase < 20 L Troponin I 0.03 D NT-Pro-B Natriuret Pep 3820 H Total Protein 6.1 Albumin 4.0 Globulin 2.1 Albumin/Globulin Ratio 1.9 H Influenza Typ A,B (EIA) 06/24/18 06/25/18 06/25/18 22:58 08:40 08:40 WBC RBC Hgb Hct MCV MCH MCHC RDW Plt Count MPV Neut % (Auto) Lymph % (Auto) Carter % (Auto) Eos % (Auto) Baso % (Auto) Lymph # (Auto) Carter # (Auto) Eos # (Auto) Baso # (Auto) Absolute Neuts (auto) Retic Count 5.59 H PT INR APTT Sodium Potassium Chloride Carbon Dioxide Anion Gap BUN Creatinine Est GFR ( Amer) Est GFR (Non-Af Amer) Random Glucose Calcium Magnesium Iron 36 L TIBC 258 L % Saturation 14 L Total Bilirubin AST ALT Alkaline Phosphatase Lactate Dehydrogenase Total Creatine Kinase Troponin I NT-Pro-B Natriuret Pep Total Protein Albumin Globulin Albumin/Globulin Ratio Influenza Typ A,B (EIA) Negative for flu a/b Assessment & Plan - Assessment and Plan (Free Text) Assessment: 88-year-old male with a past medical history of CLL, diabetes, atrial fibrillation, 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 Infectious disease consultation was requested for fever. Plan: Fevers in the setting of recent outpatient blood transfusion AIHA CLL CXR reviewed, appears largely unchanged from previous xray in system on 05/05 Timeline overall does seem to fit the picture of febrile transfusion related reaction Empirically received 1 dose of zosyn by ER Clinically does not appear toxic Afebrile No leukocytosis No tachycardia or tachypnea At this time would monitor off antibiotics Agree to consult with hematology/oncology Patient was seen and examined and case to be discussed with attending physician. Thank you for the pleasure of participating in the care of this interesting patient. - Date & Time Date: 06/25/18 Time: 10:30 <Steven Urrutia - Last Filed: 06/25/18 12:47> Meds - Medications Medications: Current Medications Acetaminophen (Tylenol 325mg Tab) 650 mg PO Q4H PRN PRN Reason: Fever >100.5 F Apixaban (Eliquis) 5 mg PO DAILY [facility]; Protocol Folic Acid (Folic Acid) 1 mg PO DAILY [facility] Furosemide (Lasix) 40 mg PO DAILY [facility] Last Admin: 06/25/18 09:45 Dose: 40 mg Glipizide (Glucotrol) 5 mg PO ACBD [facility] Last Admin: 06/25/18 08:25 Dose: 5 mg Insulin Human Lispro (Humalog Low) 0 units SC ACHS [facility]; Protocol Losartan Potassium (Cozaar) 25 mg PO DAILY [facility] Last Admin: 06/25/18 09:45 Dose: 25 mg Results - Vital Signs Recent Vital Signs: Last Vital Signs Temp 98.0 F 06/25/18 06:00 Pulse 53 L 06/25/18 09:45 Resp 19 06/25/18 06:00 BP 160/69 H 06/25/18 09:45 Pulse Ox 93 L 06/25/18 06:00 - Labs Result Diagrams: 06/24/18 22:20 06/24/18 22:20 Labs: Laboratory Results - last 24 hr 06/24/18 06/24/18 06/24/18 22:20 22:20 22:20 WBC 6.0 D RBC 2.52 L Hgb 9.0 L Hct 25.0 L MCV 99.2 MCH 35.7 H MCHC 36.0 RDW 19.9 H Plt Count 265 MPV 10.1 Neut % (Auto) 59.2 Lymph % (Auto) 20.1 L Carter % (Auto) 18.2 H Eos % (Auto) 2.0 Baso % (Auto) 0.5 Lymph # (Auto) 1.2 Carter # (Auto) 1.1 H Eos # (Auto) 0.1 Baso # (Auto) 0.03 Absolute Neuts (auto) 3.54 Retic Count PT 15.8 H INR 1.42 APTT 34.9 Sodium 136 Potassium 3.8 Chloride 100 Carbon Dioxide 26 Anion Gap 14 BUN 22 H Creatinine 1.1 Est GFR ( Amer) > 60 Est GFR (Non-Af Amer) > 60 Random Glucose 106 Calcium 8.8 Magnesium 2.0 Iron TIBC % Saturation Total Bilirubin 4.6 H AST 29 ALT 19 Alkaline Phosphatase 101 Lactate Dehydrogenase 490 Total Creatine Kinase < 20 L Troponin I 0.03 D NT-Pro-B Natriuret Pep 3820 H Total Protein 6.1 Albumin 4.0 Globulin 2.1 Albumin/Globulin Ratio 1.9 H Influenza Typ A,B (EIA) 06/24/18 06/25/18 06/25/18 22:58 08:40 08:40 WBC RBC Hgb Hct MCV MCH MCHC RDW Plt Count MPV Neut % (Auto) Lymph % (Auto) Carter % (Auto) Eos % (Auto) Baso % (Auto) Lymph # (Auto) Carter # (Auto) Eos # (Auto) Baso # (Auto) Absolute Neuts (auto) Retic Count 5.59 H PT INR APTT Sodium Potassium Chloride Carbon Dioxide Anion Gap BUN Creatinine Est GFR ( Amer) Est GFR (Non-Af Amer) Random Glucose Calcium Magnesium Iron 36 L TIBC 258 L % Saturation 14 L Total Bilirubin AST ALT Alkaline Phosphatase Lactate Dehydrogenase Total Creatine Kinase Troponin I NT-Pro-B Natriuret Pep Total Protein Albumin Globulin Albumin/Globulin Ratio Influenza Typ A,B (EIA) Negative for flu a/b Attending/Attestation - Attestation I have personally seen and examined this patient.: Yes I have fully participated in the care of the patient.: Yes I have reviewed all pertinent clinical information: Yes
--- NOTE | 2018-06-25 10:51 | CP.PCM.APN ---
Subjective - Date & Time of Evaluation Date of Evaluation: 06/25/18 Time of Evaluation: 10:45 - Subjective Subjective: pt seenn and examined at bedside with his present. pt reoprts feeling "mensa mensa", pt with cough present , denies sob, denies cp Review of Systems - Review of Systems All systems: reviewed and no additional remarkable complaints except - Respiratory Respiratory: Cough Objective - Vital Signs/Intake and Output Vital Signs (last 24 hours): Temp Pulse Resp BP Pulse Ox 98.0 F 53 L 19 160/69 H 93 L 06/25/18 06:00 06/25/18 09:45 06/25/18 06:00 06/25/18 09:45 06/25/18 06:00 Intake and Output: 06/25/18 06/25/18 06:59 18:59 Intake Total 300 Balance 300 - Medications Medications: Current Medications Acetaminophen (Tylenol 325mg Tab) 650 mg PO Q4H PRN PRN Reason: Fever >100.5 F Furosemide (Lasix) 40 mg PO DAILY [facility] Last Admin: 06/25/18 09:45 Dose: 40 mg Glipizide (Glucotrol) 5 mg PO ACBD [facility] Last Admin: 06/25/18 08:25 Dose: 5 mg Sodium Chloride (Sodium Chloride 0.9%) 1,000 mls @ 60 mls/hr IV .[id number] STA Stop: 06/25/18 18:48 Last Admin: 06/25/18 03:40 Dose: 60 mls/hr Losartan Potassium (Cozaar) 25 mg PO DAILY [facility] Last Admin: 06/25/18 09:45 Dose: 25 mg - Labs Labs: 06/24/18 22:20 06/24/18 22:20 PT 15.8 SECONDS (9.4-12.5) H 06/24/18 22:20 INR 1.42 06/24/18 22:20 APTT 34.9 Seconds (26.9-38.3) 06/24/18 22:20 - Constitutional Appears: No Acute Distress - Head Exam Head Exam: NORMOCEPHALIC - Eye Exam Eye Exam: Normal appearance - ENT Exam ENT Exam: Normal Exam - Neck Exam Neck Exam: Normal Inspection - Respiratory Exam Respiratory Exam: Decreased Breath Sounds, NORMAL BREATHING PATTERN - Cardiovascular Exam Cardiovascular Exam: Irregular Rhythm, +S1, +S2 - GI/Abdominal Exam GI & Abdominal Exam: Soft, Normal Bowel Sounds - Neurological Exam Neurological Exam: Alert, Awake - Psychiatric Exam Psychiatric exam: Normal Affect, Normal Mood - Skin Skin Exam: Dry, Intact Assessment and Plan - Assessment and Plan (Free Text) Plan: pt is a 88 yr old white male with pmgh sig for afib, chf, CLL with mets to lung, dm who presented to the ER after took his temp and was found with fever 102. pt is now admitted with ID consult for mgmt. Pt also with Sb , hR [address] Nunes as states she follows with him in the office. ID consult noted. will continue to follow clinical course. BPCI/TIC - BPCIA/TIC Educated pt/family on BPCIA/CIR/Med to Bed Programs: N/A Flyers given, including [facility] Beneficiary letter: N/A Pt/family verbalized understanding & agreed to program: N/A
--- NOTE | 2018-06-25 11:16 | CARD ---
APPROVED REPORT Date of service: 06/24/2018 EKG Measurement Heart [id number] <Conclusion> Atrial flutter with variable AV block Nonspecific T wave abnormality Abnormal ECG
--- NOTE | 2018-06-25 13:34 | RAD ---
Date of service: 06/24/2018 HISTORY: fever COMPARISON: Chest radiographs 05/05/2018. FINDINGS: LUNGS: No active pulmonary disease. PLEURA: No significant pleural effusion identified, no pneumothorax apparent. CARDIOVASCULAR: No aortic atherosclerotic calcification present. Normal cardiac size. No pulmonary vascular congestion. OSSEOUS STRUCTURES: No significant abnormalities. VISUALIZED UPPER ABDOMEN: Normal. OTHER FINDINGS: None. IMPRESSION: No interval acute cardiopulmonary disease appreciated.
[2018-06-25] MEDS: Insulin Lispro (humaLOG) LOW Coverage SC SCH ×2 (17:24→21:38)
--- NOTE | 2018-06-25 23:04 | CON ---
DATE: 06/25/2018 REASON FOR CONSULTATION AND FOLLOWUP: Bradycardia, chronic atrial fibrillation, admitted after having a chemo, flu-like symptom, possible early pneumonia. BRIEF CLINICAL HISTORY: An 88-year-old male with past medical history of CLL with metastasis to the lung requires frequent transfusion, type 2 diabetes, chronic atrial fibrillation on anticoagulation who received a blood transfusion on Friday, then the patient got a fever of 102 and then gets panicky and he started coughing, so called Dr. Hutchins and was advised to come here to rule out possible early pneumonia. PAST MEDICAL HISTORY: Significant for CLL, metastasis to the lung, autoimmune hemolytic anemia, type 2 diabetes, chronic atrial fibrillation on Eliquis, gets frequent blood transfusions because of low blood count. PAST SURGICAL HISTORY: Significant for appendectomy, cholecystectomy many years ago. ALLERGIES: NO KNOWN DRUG ALLERGY. SOCIAL HISTORY: Denies any smoking, denies any history of alcohol abuse. CURRENT MEDICATIONS: The patient at home is taking Eliquis 5 mg twice a day, folic acid 5 mg once a day and as per heme/onc folic acid 1 mg daily, Coreg 3.125 mg daily, losartan 25 mg daily, Glucotrol 5 mg daily, furosemide 40 mg daily. PREVIOUS CARDIAC WORKUP: As follows; the patient had a LEI cardioversion in 2010, and then a repeat in 2015, converted to normal sinus, but after that the patient reversed back to atrial fibrillation and since then the patient is AFib. The patient is not on anticoagulation. History of chronic lymphocytic leukemia, history of autoimmune hemolytic anemia, recently diagnosed lung CA, diabetes and hypertension. History of last stress test on 06/21/2015, that shows normal myocardial perfusion study, ejection fraction 57%. REVIEW OF SYSTEMS: As per HPI. PHYSICAL EXAMINATION GENERAL: As follows; height of the patient 5 feet 10 inches, weight of the patient 186 pounds, body mass index 26.8 kg/m2. VITAL SIGNS: Temperature afebrile, heart rate 58, blood pressure 116/62. HEENT: PERRLA. Extraocular muscles intact. NECK: Supple. No carotid bruit. No thyromegaly. CHEST: Clear to auscultation. HEART: S1, S2 regular. ABDOMEN: Soft. EXTREMITIES: Clubbing and cyanosis, negative. LABORATORY DATA: Blood workup as follows; WBC 6, hemoglobin 9, hematocrit 25, platelet count 265. Chemistry shows sodium 130, potassium 3.8, chloride 100, carbon dioxide 26, anion gap of 14, BUN 20, creatinine 1.1. Troponin 0.01. IMPRESSION: An 88-year-old male with past medical history of chronic lymphocytic leukemia, history of recent lung cancer, autoimmune hemolytic anemia, history of chronic atrial fibrillation, failed transesophageal echocardiography cardioversion, admitted after a blood transfusion fever, admitted here with fever, rule out early pneumonia. Initial admitting chest x-ray; no active disease noted. RECOMMENDATION: Mohamud culture. Resume the medication. Monitor heart rate. The patient is bradycardic with atrial fibrillation with slow response. Continue Eliquis, it should be b.i.d. but as per Hematology the patient gets it once a day. CV status is stable. The patient had a stress test in 2015, essentially negative. 06/19/2015, the patient had a LEI cardioversion and converted to sinus bradycardia, but reversed back to atrial fibrillation. Today, EKG showed atrial flutter with variable conduction, heart rate 64. There is a lipid profile, TSH, hemoglobin A1c. We will follow with you. Thank you Dr. Ireland, for providing us the opportunity in taking care of the patient, Natalya. Kelly Rose MD
[2018-06-26 05:55] VITALS: O2SAT 97
--- NOTE | 2018-06-26 06:45 | CP.PCM.PN ---
Objective - Vital Signs/Intake and Output Vital Signs (last 24 hours): Temp Pulse Resp BP Pulse Ox 97.0 F L 42 L 18 155/60 H 97 06/26/18 05:54 06/26/18 05:54 06/26/18 05:54 06/26/18 05:54 06/26/18 05:54 Intake and Output: 06/25/18 06/26/18 18:59 06:59 Intake Total 2300 Output Total 640 Balance 1660 - Medications Medications: Current Medications Acetaminophen (Tylenol 325mg Tab) 650 mg PO Q4H PRN PRN Reason: Fever >100.5 F Apixaban (Eliquis) 5 mg PO DAILY [facility]; Protocol Last Admin: 06/25/18 12:57 Dose: 5 mg Folic Acid (Folic Acid) 1 mg PO DAILY [facility] Last Admin: 06/25/18 12:56 Dose: 1 mg Furosemide (Lasix) 40 mg PO DAILY [facility] Last Admin: 06/25/18 09:45 Dose: 40 mg Glipizide (Glucotrol) 5 mg PO ACBD [facility] Last Admin: 06/25/18 17:25 Dose: Not Given Insulin Human Lispro (Humalog Low) 0 units SC ACHS [facility]; Protocol Last Admin: 06/25/18 21:38 Dose: Not Given Losartan Potassium (Cozaar) 25 mg PO DAILY [facility] Last Admin: 06/25/18 09:45 Dose: 25 mg - Labs Labs: 06/24/18 22:20 06/24/18 22:20 PT 15.8 SECONDS (9.4-12.5) H 06/24/18 22:20 INR 1.42 06/24/18 22:20 APTT 34.9 Seconds (26.9-38.3) 06/24/18 22:20
[2018-06-26 07:08] LABS: BASO # 0.03 K/mm3 (0.0-2.0); BASO % 0.7 % (0.0-3.0); EOS # 0.2 (0.0-0.7); EOS % 4.3 % (1.5-5.0); HEMOGLOBIN 9.4 g/dL (14.0-18.0); LYMPH # 1.7 (1.2-3.4); LYMPH % 39.3 % (22.0-35.0); MEAN CELL VOLUME 99.6 fl (80.0-105.0); MEAN CORPUSCULAR HEMOGLOBIN 34.9 pg (25.0-35.0); MEAN CORPUSCULAR HGB CONC 35.1 g/dl (31.0-37.0); MEAN PLATELET VOLUME 10.2 fl (7.0-11.0); MONO # 0.8 (0.1-0.6); MONO % 18.6 % (1.0-6.0); RBC 2.69 10^6/uL (3.5-6.1); RED CELL DISTRIBUTION WIDTH 19.9 % (11.5-14.5); WHITE BLOOD COUNT 4.2 10^3/uL (4.5-11.0)
[2018-06-26 07:28] LABS: ALB/GLOB RATIO 1.9 (1.1-1.8); ALBUMIN 3.6 g/dL (3.0-4.8); ALT/SGPT 18 U/L (7-56); AST/SGOT 27 U/L (17-59); BLOOD UREA NITROGEN 16 mg/dL (7-21); GFR NON-AFRICAN AMERICAN > 60; HDL CHOLESTEROL 25 mg/dL (29-60)
[2018-06-26 07:33] LABS: LDL CHOLESTEROL 39 mg/dL (0-129)
[2018-06-26] MEDS: Insulin Lispro (humaLOG) LOW Coverage SC SCH ×2 (09:57→11:54)
--- NOTE | 2018-06-26 10:03 | CP.PCM.DIS ---
<Nesha Balderas - Last Filed: 06/26/18 11:45> Provider - Provider Date of Admission: 06/25/18 01:03 Attending physician: Abner Ireland MD Primary care physician: Curtis Sales MD Consults: 06/25/18 04:15 Social Work Referral Routine Comment: patient meets criteria Physician Instructions: Reason For Exam: baylock score 10 06/25/18 06:21 Consult [Physician Consult] Routine Comment: Consulting Provider: Steven Urrutia Consulting Physician: Steven Urrutia Reason for Consult: fever 06/25/18 09:00 Hematology Oncology Consult Routine Comment: Consulting Provider: Truman Hutchins Consulting Physician: Truman Hutchins Reason for Consult: h/o CLL, Anemia 06/25/18 10:18 Consult [Physician Consult] Routine Comment: sinus jay Consulting Provider: eKlly Nunes Consulting Physician: Kelly Nunes Reason for Consult: sinus jay Time Spent in preparation of Discharge (in minutes): 45 Diagnosis - Discharge Diagnosis (1) Febrile nonhemolytic transfusion reaction Status: Resolved Comment: 102 fever at home. 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 (4) Non-insulin dependent type 2 diabetes mellitus Status: Chronic (5) Atrial fibrillation and flutter Status: Ruled-out Comment: Acute flutter, chronic fibrillation (6) Bradycardia Status: Chronic (7) HTN (hypertension) Status: Chronic (8) Lower extremity edema Status: Chronic (9) Atrial fibrillation Status: Chronic Hospital Course - Lab Results Lab Results: Micro Results 06/24/18 23:10 Blood-Venous Blood Culture - Preliminary NO GROWTH AFTER 24 HOURS 06/24/18 22:25 Blood-Venous Blood Culture - Preliminary NO GROWTH AFTER 24 HOURS Most Recent Lab Values WBC 4.2 10^3/uL (4.5-11.0) L D 06/26/18 06:30 RBC 2.69 10^6/uL (3.5-6.1) L 06/26/18 06:30 Hgb 9.4 g/dL (14.0-18.0) L 06/26/18 06:30 Hct 26.8 % (42.0-52.0) L 06/26/18 06:30 MCV 99.6 fl (80.0-105.0) 06/26/18 06:30 MCH 34.9 pg (25.0-35.0) 06/26/18 06:30 MCHC 35.1 g/dl (31.0-37.0) 06/26/18 06:30 RDW 19.9 % (11.5-14.5) H 06/26/18 06:30 Plt Count 243 10^3/uL (120.0-450.0) 06/26/18 06:30 MPV 10.2 fl (7.0-11.0) 06/26/18 06:30 Neut % (Auto) 37.1 % (50.0-68.0) L 06/26/18 06:30 Lymph % (Auto) 39.3 % (22.0-35.0) H 06/26/18 06:30 Chaves % (Auto) 18.6 % (1.0-6.0) H 06/26/18 06:30 Eos % (Auto) 4.3 % (1.5-5.0) 06/26/18 06:30 Baso % (Auto) 0.7 % (0.0-3.0) 06/26/18 06:30 Lymph # (Auto) 1.7 (1.2-3.4) 06/26/18 06:30 Chaves # (Auto) 0.8 (0.1-0.6) H 06/26/18 06:30 Eos # (Auto) 0.2 (0.0-0.7) 06/26/18 06:30 Baso # (Auto) 0.03 K/mm3 (0.0-2.0) 06/26/18 06:30 Absolute Neuts (auto) 1.56 (1.4-6.5) 06/26/18 06:30 Retic Count 5.59 % (0.5-1.5) H 06/25/18 08:40 PT 15.8 SECONDS (9.4-12.5) H 06/24/18 22:20 INR 1.42 06/24/18 22:20 APTT 34.9 Seconds (26.9-38.3) 06/24/18 22:20 Sodium 139 mmol/L (132-148) 06/26/18 06:30 Potassium 3.8 mmol/L (3.6-5.0) 06/26/18 06:30 Chloride 105 mmol/L (98-107) 06/26/18 06:30 Carbon Dioxide 27 mmol/L (21-33) 06/26/18 06:30 Anion Gap 11 (10-20) 06/26/18 06:30 BUN 16 mg/dL (7-21) 06/26/18 06:30 Creatinine 0.8 mg/dl (0.8-1.5) 06/26/18 06:30 Est GFR ( Amer) > 60 06/26/18 06:30 Est GFR (Non-Af Amer) > 60 06/26/18 06:30 Random Glucose 108 mg/dL (70-110) 06/26/18 06:30 Calcium 9.0 mg/dL (8.4-10.5) 06/26/18 06:30 Phosphorus 4.2 mg/dL (2.5-4.5) 06/26/18 06:30 Magnesium 2.1 mg/dL (1.7-2.2) 06/26/18 06:30 Iron 36 ug/dL (45-180) L 06/25/18 08:40 TIBC 258 ug/dL (261-462) L 06/25/18 08:40 % Saturation 14 % (20-55) L 06/25/18 08:40 Ferritin 1170.0 ng/mL 06/25/18 08:40 Total Bilirubin 3.0 mg/dL (0.2-1.3) H 06/26/18 06:30 AST 27 U/L (17-59) 06/26/18 06:30 ALT 18 U/L (7-56) 06/26/18 06:30 Alkaline Phosphatase 90 U/L (38-126) 06/26/18 06:30 Lactate Dehydrogenase 490 U/L (333-699) 06/24/18 22:20 Total Creatine Kinase < 20 U/L (35-230) L 06/24/18 22:20 Troponin I 0.03 ng/mL D 06/24/18 22:20 NT-Pro-B Natriuret Pep 3820 pg/mL (0-450) H 06/24/18 22:20 Total Protein 5.5 g/dL (5.8-8.3) L 06/26/18 06:30 Albumin 3.6 g/dL (3.0-4.8) 06/26/18 06:30 Globulin 1.9 gm/dL 06/26/18 06:30 Albumin/Globulin Ratio 1.9 (1.1-1.8) H 06/26/18 06:30 Triglycerides 72 mg/dL (35-160) 06/26/18 06:30 Cholesterol 69 mg/dL (130-200) L 06/26/18 06:30 LDL Cholesterol Direct 39 mg/dL (0-129) 06/26/18 06:30 HDL Cholesterol 25 mg/dL (29-60) L 06/26/18 06:30 TSH 3rd Generation 3.05 mIU/mL (0.46-4.68) 06/26/18 06:30 Influenza Typ A,B (EIA) Negative for flu a/b (NEGATIVE) 06/24/18 22:58 - Hospital Course Hospital Course: Patient is an 88 y/o Male with PMH of 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 Patient had 2 pints of prbc transfusion 2 days prior to developing fever thus febrile non hemolytic illness was suspected, however bacterial co ntamination of the transfused blood was also on top of the differentials. Patient denied other symptoms other than feeling fatigued. Patient had chest x- ray in the ED with normal finding. Blood culture was sent and patient was giving a dose of zosyn in the ED. Patient was admitted for observation. Urine culture was also sent. Patient remains afebrile, and blood cultures with no growth after 24 hours. Patient was also noted to have atrial flutter on ekg which is new, thus building services technician was consulted. TSH was normal. Patient's coreg was held due to periods of bradycardia, with HR in the 40s. Patient's on modified dose eliquis, 5 daily instead of 5 bid per his model home sales greeter. Patient will be discharged to follow up with his primary care doctor to determine if he needs to continue with coreg. Patient will also continue to follow with his model home sales greeter/Oncologist. Diet: resume 2 gram sodium diet Activity: resume baseline activity Home meds: eliquis 5 mg daily, Folic acid 1 gm daily, glipizide 5 mg bid, losartan 25 mg daily, Lasix 40 mg daily. - Date & Time of H&P Date of H&P: 06/25/18 Time of H&P: 06:50 Discharge Exam - Head Exam Head Exam: ATRAUMATIC, NORMAL INSPECTION, NORMOCEPHALIC - Eye Exam Eye Exam: EOMI, Normal appearance, PERRL. absent: Scleral icterus Pupil Exam: NORMAL ACCOMODATION - ENT Exam ENT Exam: Mucous Membranes Moist - Neck Exam Neck exam: Normal Inspection - Respiratory Exam Respiratory Exam: Clear to PA & Lateral, NORMAL BREATHING PATTERN, UNREMARKABLE. absent: Rales, Rhonchi, Wheezes, Respiratory Distress, Stridor - Cardiovascular Exam Cardiovascular Exam: Bradycardia, Irregular Rhythm, +S1, +S2. absent: Diastolic murmur, Gallop, JVD, Rubs, Systolic Murmur - GI/Abdominal Exam GI & Abdominal Exam: Normal Bowel Sounds, Unremarkable. absent: Distended, Firm, Guarding, Rebound, Rigid, Soft, Tenderness - Extremities Exam Extremities exam: pedal edema (+3) - Back Exam Back exam: NORMAL INSPECTION Additional comments: + hunched back. - Neurological Exam Neurological exam: Alert, Oriented x3 - Psychiatric Exam Psychiatric exam: Normal Affect, Normal Mood - Skin Skin Exam: Dry, Normal Color, Warm Discharge Plan - Follow Up Plan Condition: GUARDED Disposition: HOME/ ROUTINE Patient education suggested?: Yes Instructions: Fever, Adult (DC) Additional Instructions: Please follow up with Dr. Sales in 1 week Please continue to follow up with Dr. Hutchins Follow up with your building services technician in 1-2 weeks Your HR has been on the lower side while in the hospital, hold the carvedilol ( Coreg) untill you see Dr. Sales next week to see if you need to continue the medication. Otherwise please continue all your home medications, except the coreg ( Carvedilol). Please return if the symptoms returns or call 911. Referrals: Curtis Sales MD [Primary Care Provider] - Follow up with primary Truman Hutchins MD [Medical Doctor] - <Abner Ireland - Last Filed: 06/26/18 19:02> Provider - Provider Date of Admission: 06/25/18 01:03 Attending physician: Abner Ireland MD Primary care physician: Curtis Sales MD Consults: 06/25/18 04:15 Social Work Referral Routine Comment: patient meets criteria Physician Instructions: Reason For Exam: baylock score 10 06/25/18 06:21 Consult [Physician Consult] Routine Comment: Consulting Provider: Steven Urrutia Consulting Physician: Steven Urrutia Reason for Consult: fever 06/25/18 09:00 Hematology Oncology Consult Routine Comment: Consulting Provider: Truman Hutchins Consulting Physician: Truman Hutchins Reason for Consult: h/o CLL, Anemia 06/25/18 10:18 Consult [Physician Consult] Routine Comment: sinus jay Consulting Provider: Kelly Nunes Consulting Physician: Kelly Nunes Reason for Consult: sinus jay Hospital Course - Lab Results Lab Results: Micro Results 06/24/18 23:10 Blood-Venous Blood Culture - Preliminary NO GROWTH AFTER 24 HOURS 06/24/18 22:25 Blood-Venous Blood Culture - Preliminary NO GROWTH AFTER 24 HOURS Most Recent Lab Values WBC 4.2 10^3/uL (4.5-11.0) L D 06/26/18 06:30 RBC 2.69 10^6/uL (3.5-6.1) L 06/26/18 06:30 Hgb 9.4 g/dL (14.0-18.0) L 06/26/18 06:30 Hct 26.8 % (42.0-52.0) L 06/26/18 06:30 MCV 99.6 fl (80.0-105.0) 06/26/18 06:30 MCH 34.9 pg (25.0-35.0) 06/26/18 06:30 MCHC 35.1 g/dl (31.0-37.0) 06/26/18 06:30 RDW 19.9 % (11.5-14.5) H 06/26/18 06:30 Plt Count 243 10^3/uL (120.0-450.0) 06/26/18 06:30 MPV 10.2 fl (7.0-11.0) 06/26/18 06:30 Neut % (Auto) 37.1 % (50.0-68.0) L 06/26/18 06:30 Lymph % (Auto) 39.3 % (22.0-35.0) H 06/26/18 06:30 Chaves % (Auto) 18.6 % (1.0-6.0) H 06/26/18 06:30 Eos % (Auto) 4.3 % (1.5-5.0) 06/26/18 06:30 Baso % (Auto) 0.7 % (0.0-3.0) 06/26/18 06:30 Lymph # (Auto) 1.7 (1.2-3.4) 06/26/18 06:30 Chaves # (Auto) 0.8 (0.1-0.6) H 06/26/18 06:30 Eos # (Auto) 0.2 (0.0-0.7) 06/26/18 06:30 Baso # (Auto) 0.03 K/mm3 (0.0-2.0) 06/26/18 06:30 Absolute Neuts (auto) 1.56 (1.4-6.5) 06/26/18 06:30 Retic Count 5.59 % (0.5-1.5) H 06/25/18 08:40 PT 15.8 SECONDS (9.4-12.5) H 06/24/18 22:20 INR 1.42 06/24/18 22:20 APTT 34.9 Seconds (26.9-38.3) 06/24/18 22:20 Sodium 139 mmol/L (132-148) 06/26/18 06:30 Potassium 3.8 mmol/L (3.6-5.0) 06/26/18 06:30 Chloride 105 mmol/L (98-107) 06/26/18 06:30 Carbon Dioxide 27 mmol/L (21-33) 06/26/18 06:30 Anion Gap 11 (10-20) 06/26/18 06:30 BUN 16 mg/dL (7-21) 06/26/18 06:30 Creatinine 0.8 mg/dl (0.8-1.5) 06/26/18 06:30 Est GFR ( Amer) > 60 06/26/18 06:30 Est GFR (Non-Af Amer) > 60 06/26/18 06:30 Random Glucose 108 mg/dL (70-110) 06/26/18 06:30 Hemoglobin A1c 5.7 % (4.2-6.5) 06/26/18 06:30 Calcium 9.0 mg/dL (8.4-10.5) 06/26/18 06:30 Phosphorus 4.2 mg/dL (2.5-4.5) 06/26/18 06:30 Magnesium 2.1 mg/dL (1.7-2.2) 06/26/18 06:30 Iron 36 ug/dL (45-180) L 06/25/18 08:40 TIBC 258 ug/dL (261-462) L 06/25/18 08:40 % Saturation 14 % (20-55) L 06/25/18 08:40 Ferritin 1170.0 ng/mL 06/25/18 08:40 Total Bilirubin 3.0 mg/dL (0.2-1.3) H 06/26/18 06:30 AST 27 U/L (17-59) 06/26/18 06:30 ALT 18 U/L (7-56) 06/26/18 06:30 Alkaline Phosphatase 90 U/L (38-126) 06/26/18 06:30 Lactate Dehydrogenase 490 U/L (333-699) 06/24/18 22:20 Total Creatine Kinase < 20 U/L (35-230) L 06/24/18 22:20 Troponin I 0.03 ng/mL D 06/24/18 22:20 NT-Pro-B Natriuret Pep 3820 pg/mL (0-450) H 06/24/18 22:20 Total Protein 5.5 g/dL (5.8-8.3) L 06/26/18 06:30 Albumin 3.6 g/dL (3.0-4.8) 06/26/18 06:30 Globulin 1.9 gm/dL 06/26/18 06:30 Albumin/Globulin Ratio 1.9 (1.1-1.8) H 06/26/18 06:30 Triglycerides 72 mg/dL (35-160) 06/26/18 06:30 Cholesterol 69 mg/dL (130-200) L 06/26/18 06:30 LDL Cholesterol Direct 39 mg/dL (0-129) 06/26/18 06:30 HDL Cholesterol 25 mg/dL (29-60) L 06/26/18 06:30 TSH 3rd Generation 3.05 mIU/mL (0.46-4.68) 06/26/18 06:30 Influenza Typ A,B (EIA) Negative for flu a/b (NEGATIVE) 06/24/18 22:58 - Hospital Course Hospital Course: Pt was seen and examined. This is a late entry. The note of the medical center representative was reviewed and I agree the note. The plan of care was discussed with the resident.The labs and medications has been reviewed.
[2018-06-26 10:04] VITALS: BP 124/64
--- NOTE | 2018-06-26 11:03 | CP.PCM.PN ---
<Matt Banda - Last Filed: 06/26/18 11:00> Subjective - Date & Time of Evaluation Date of Evaluation: 06/26/18 Time of Evaluation: 09:39 - Subjective Subjective: Matt Banda D.O. PGY-3, Internal Medicine Resident, Infectious Disease Progress Note 88-year-old male with a past medical history of CLL, diabetes, atrial fibrillation, 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 Infectious disease consultation was requested for fever. Patient was seen and examined at bedside with present. Doing very well. Eager to go home. Objective - Vital Signs/Intake and Output Vital Signs (last 24 hours): Temp Pulse Resp BP Pulse Ox 97.0 F L 42 L 18 124/64 97 06/26/18 05:54 06/26/18 05:54 06/26/18 05:54 06/26/18 10:01 06/26/18 05:54 Intake and Output: 06/26/18 06/26/18 06:59 18:59 Intake Total 2300 Output Total 640 Balance 1660 - Medications Medications: Current Medications Acetaminophen (Tylenol 325mg Tab) 650 mg PO Q4H PRN PRN Reason: Fever >100.5 F Apixaban (Eliquis) 5 mg PO DAILY [facility]; Protocol Last Admin: 06/26/18 10:01 Dose: 5 mg Folic Acid (Folic Acid) 1 mg PO DAILY [facility] Last Admin: 06/26/18 10:01 Dose: 1 mg Furosemide (Lasix) 40 mg PO DAILY [facility] Last Admin: 06/26/18 10:01 Dose: 40 mg Glipizide (Glucotrol) 5 mg PO ACBD [facility] Last Admin: 06/26/18 09:00 Dose: 5 mg Insulin Human Lispro (Humalog Low) 0 units SC ACHS [facility]; Protocol Last Admin: 06/26/18 09:57 Dose: Not Given Losartan Potassium (Cozaar) 25 mg PO DAILY [facility] Last Admin: 06/26/18 10:01 Dose: Not Given - Labs Labs: 06/26/18 06:30 06/26/18 06:30 PT 15.8 SECONDS (9.4-12.5) H 06/24/18 22:20 INR 1.42 06/24/18 22:20 APTT 34.9 Seconds (26.9-38.3) 06/24/18 22:20 - Constitutional Appears: Non-toxic, No Acute Distress - Head Exam Head Exam: ATRAUMATIC, NORMOCEPHALIC - Eye Exam Eye Exam: EOMI, PERRL. absent: Scleral icterus - ENT Exam ENT Exam: Mucous Membranes Moist, Normal Oropharynx - Neck Exam Neck exam: Positive for: Normal Inspection. Negative for: Lymphadenopathy - Respiratory Exam Respiratory Exam: Clear to Auscultation Bilateral. absent: Rales, Rhonchi, Wheezes - Cardiovascular Exam Cardiovascular Exam: +S1, +S2. absent: Gallop, Rubs - GI/Abdominal Exam GI & Abdominal Exam: Normal Bowel Sounds, Soft. absent: Distended, Tenderness - Extremities Exam Extremities exam: Positive for: normal capillary refill. Negative for: calf tenderness - Neurological Exam Neurological exam: Alert, CN II-XII Intact, Oriented x3 - Skin Additional comments: multiple age related skin changes including some senile purpura Assessment and Plan - Assessment and Plan (Free Text) Assessment: 88-year-old male with a past medical history of CLL, diabetes, atrial fibrillation, 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 Infectious disease consultation was requested for fever. Plan: Fevers in the setting of recent outpatient blood transfusion AIHA CLL Afebrile No leukocytosis No tachycardia or tachypnea No signs of infection BCxs negative 2/2 day 1 Cleared by hematology/oncology Can be discharged home with close follow up as outpatient Patient was seen and examined and case to be discussed with attending physician. Thank you for the pleasure of participating in the care of this interesting patient. <Steven Urrutia - Last Filed: 06/26/18 13:13> Objective - Vital Signs/Intake and Output Vital Signs (last 24 hours): Temp Pulse Resp BP Pulse Ox 98 F 60 20 124/64 97 06/26/18 12:00 06/26/18 12:00 06/26/18 12:00 06/26/18 12:00 06/26/18 05:54 Intake and Output: 06/26/18 06/26/18 06:59 18:59 Intake Total 2300 Output Total 640 Balance 1660 - Medications Medications: Current Medications Acetaminophen (Tylenol 325mg Tab) 650 mg PO Q4H PRN PRN Reason: Fever >100.5 F Apixaban (Eliquis) 5 mg PO DAILY [facility]; Protocol Last Admin: 06/26/18 10:01 Dose: 5 mg Folic Acid (Folic Acid) 1 mg PO DAILY [facility] Last Admin: 06/26/18 10:01 Dose: 1 mg Furosemide (Lasix) 40 mg PO DAILY [facility] Last Admin: 06/26/18 10:01 Dose: 40 mg Glipizide (Glucotrol) 5 mg PO ACBD [facility] Last Admin: 06/26/18 09:00 Dose: 5 mg Insulin Human Lispro (Humalog Low) 0 units SC ACHS [facility]; Protocol Last Admin: 06/26/18 11:54 Dose: Not Given Losartan Potassium (Cozaar) 25 mg PO DAILY [facility] Last Admin: 06/26/18 10:01 Dose: Not Given - Labs Labs: 06/26/18 06:30 06/26/18 06:30 PT 15.8 SECONDS (9.4-12.5) H 06/24/18 22:20 INR 1.42 06/24/18 22:20 APTT 34.9 Seconds (26.9-38.3) 06/24/18 22:20 Attending/Attestation - Attestation I have personally seen and examined this patient.: Yes I have fully participated in the care of the patient.: Yes I have reviewed all pertinent clinical information, including history, physical exam and plan: Yes
[2018-06-26 12:07] VITALS: PULSE 60; RESP 20; TEMP 98
--- NOTE | 2018-06-26 14:23 | CON ---
DATE: 06/26/2018 ONCOLOGY CONSULTATION HISTORY OF PRESENT ILLNESS: This is an 88-year-old man with a very, very complicated medical situation. The patient presented with autoimmune cold agglutinin hemolytic anemia about 12 years ago. He had a lymphoproliferative disorder. It seemed like a chronic lymphocytic leukemia that caused this. Over the years, he has required periodic treatments with Rituxan weekly x4. The last one was performed about six months ago and then he was stable for a year or two, though more recently the treatments have been lasting only about six months. The second issue is that he developed a lung cancer and has received no treatment for this. The chest x-ray here is negative. It has been reported it is negative for mass, but he has a lung cancer. We gave him one cycle of chemotherapy, but he did not want to take any further treatment for this. He has been relatively stable on the last CAT scans that were done about two or three months. The third issue is that he has other medical problems such as diabetes, hypertension, some edema, but he also has atrial fibrillation, on and was getting increasingly short of breath. I transfused him 2 units of packed cells on Friday and on Friday he started developing fever of 102. I do not feel this was due to the transfusion. He would fever immediately, but he does have certain amount of emphysema. He has CHF and he does have a lung cancer. He could have developed some post-obstructive infection. In any event in the emergency room, he was found to not to be afebrile, but he was so short of breath and he was found to be in atrial flutter. So at this point, he is being treated for several medical issues. He is not getting antibiotics. The hemoglobin is around 9 and we will just observe that for now. His iron levels were low, but his ferritin is very high. So, I am holding off on the iron infusions because he has received multiple blood transfusions and since the cold agglutinin disease, he still has the hemolytic anemia. His retic count is 5%. Bilirubin is elevated at 4. As an outpatient, we detected the cold agglutinin. The issue was how to treat it and we have been discussing in the office the other day treating him with Cytoxan. So at this point for the hospitalization, we are observing him for the fever and treating for the atrial flutter. As an outpatient we will then pursue any further treatment for the cold agglutinin hemolytic anemia. PHYSICAL EXAMINATION: SKIN: No petechiae. No bruises. HEENT: Anicteric. NODES: None palpable in the axillary, cervical, supraclavicular or inguinal regions. LUNGS: Basically okay. No actual wheeze or rhonchi. Some scattered rhonchi that clear on coughing. ABDOMEN: No liver or spleen. No tenderness. EXTREMITIES: Shows trace edema. CENTRAL NERVOUS SYSTEM: No focal finding. ASSESSMENT AND PLAN: By the way, I did a bone marrow on him about three or four months ago to evaluate the monocytes and to see if his leukocytes have changed and the bone marrow was basically negative including flow cytometry for any lymphoproliferative disorder, that does not mean he does not have it. He does certainly have the cold agglutinin hemolytic anemia, it is unclear as to why. Truman Hutchins MD
--- NOTE | 2018-06-26 21:16 | PN ---
DATE: 06/26/2018 REASON FOR CONSULTATION AND FOLLOW UP: Bradycardia, chronic atrial fibrillation admitted after having a chemo, flu like symptoms, possible early pneumonia. SUBJECTIVE: The patient denies any chest pain, shortness of breath, or any palpitations. Patient is not in apparent distress. is at the bedside. PHYSICAL EXAMINATION VITAL SIGNS: Temperature afebrile, heart rate 60, blood pressure 124/64. HEENT: PERRLA. Extraocular muscles intact.. NECK: Supple. No carotid bruit. No thyromegaly. CHEST: Clear to auscultation. HEART: S1, S2 regular. ABDOMEN: Soft. EXTREMITIES: Clubbing, cyanosis negative. LABORATORY DATA: Blood workup as follows; WBC 4.8, hemoglobin 9.2, hematocrit 26.8, platelet count 243. Chemistry shows sodium 131, potassium 3.0, chloride 105, carbon dioxide 27, anion gap of 11, BUN 26, creatinine is 0.8. IMPRESSION AND PLAN: An 88-year-old male with past medical history significant for chronic lymphocytic leukemia, history of recent lung cancer, autoimmune hemolytic anemia, history of chronic atrial fibrillation, failed transesophageal echocardiography cardioversion twice, admitted after blood transfusion fever, possibly rule out early pneumonia. So far, the patient has remained stable. Possible discharge home today. Suggested patient to resume back Coreg and the previous medications at home. Follow with Dr. Nunes in one week. Kelly Rose MD
--- NOTE | 2018-06-27 00:55 | DS ---
HOSPITAL COURSE: The patient was seen and examined. I do agree with the note of the registered medical transcriptionist. The patient had fever. It was felt that this was transfusion related fever/pos transfusion fever that had improved. The patient had a fever of 102 at home. He has CLL and is getting transfusion for his anemia. The patient had blood cultures which were negative. The patient was seen by Infectious Disease. No antibiotics were started. He has no complaints of dysuria or frequency. He was discharged home to follow up as an outpatient with his primary care doctor. Abner Ireland MD
== END 2018-06-26 13:38 | disposition home or self-care (01) ==
LOC: ED 21:15 → ERH 06-25 01:03 → 2RNO 06-25 03:13
PROVIDERS: ADMIT Internal Medicine Nephrology; ATTEND Internal Medicine Nephrology
DX: R50.84 Febrile nonhemolytic transfusion reaction (principal); C91.10 Chronic lymphocytic leukemia of B-cell type not having achieved remission; C78.00 Secondary malignant neoplasm of unspecified lung; E11.9 Type 2 diabetes mellitus without complications; I11.0 Hypertensive heart disease with heart failure; I50.9 Heart failure, unspecified; D59.1 Other autoimmune hemolytic anemias; I48.2 Chronic atrial fibrillation; I48.92 Unspecified atrial flutter; K74.60 Unspecified cirrhosis of liver; J43.9 Emphysema, unspecified; N40.0 Benign prostatic hyperplasia without lower urinary tract symptoms; R00.1 Bradycardia, unspecified; Z87.891 Personal history of nicotine dependence; Z79.01 Long term (current) use of anticoagulants; Z79.84 Long term (current) use of oral hypoglycemic drugs
CPT/HCPCS: 36415; 71045; 80053; 80061; 82550; 82728; 83036; 83540; 83550; 83615; 83735; 83880; 84100; 84443; 84484; 85025; 85044; 85610; 85730; 87040; 87086; 87804; 93005; 96374; 97162; 97530; 99285; G0378; G8978; G8979; J2543; J7030